=== PATIENT | female | born 1940 | race Caucasian/White ===

== ENCOUNTER → 2017-12-18 10:10 | Outpatient (CLI) | payer MEDICARE, OTHER, SELFPAY ==
[2017-12-18 12:50] LABS: TSH w/ Reflex to FT4 < 0.02 uIU/mL (0.47-4.68)
[2017-12-18 13:18] LABS: Free T4, Direct Thyroxine 1.49 ng/dL (0.78-2.19)
== END ==
PROVIDERS: PCP Family Medicine; Visit Provider Family Medicine
DX: E03.9 Hypothyroidism, unspecified (principal)
CPT/HCPCS: 36415; 84439; 84443

== ENCOUNTER 2019-01-17 11:48 | Day surgery (SDC) | payer MEDICARE, OTHER, SELFPAY ==
--- NOTE | 2019-01-17 | PATH_ITS ---
[facility] Accession Number: [id number] . 01 Material submitted: . body - POLYP AT 100 CM . 02 Diagnosis: Colon, Polyp at 100 cm, Biopsy: Colonic mucosa with prominent submucosal mature adipose tissue, consistent with lipoma. No evidence of atypia, epithelial dysplasia or malignancy. MRV/01/21/2019 . 02 Electronically signed: . Thea Skinner MD, Pathologist NPI- [id number] . 01 Gross description: . Received in formalin, labeled polyp @ 100 cm, is a prince rubbery polyp (1.3 x 0.9 x 0.5 cm). The resection margin is inked blue. Longitudinally bisected and entirely submitted in cassette A1. ([id number]) /MRV . 02 Pathologist provided ICD-10: K63.5 . 02 CPT . 801519 Performed at: 01 [facility] [address] [facility], [place], [place] [id number] MD Jese Parson MD Phone: [phone] Performed at: 02 [facility] [address] [place], [place] [id number] MD Thea Skinner MD Phone: [phone]
[2019-01-17 12:36] VITALS: BP 153/97; PULSE 117; RESP 22; TEMP 37.3; O2SAT 90; BMI 38.9
--- NOTE | 2019-01-17 12:39 | PM.HP.1 ---
History of Present Illness Date Patient Seen: 01/17/19 Time Patient Seen: 12:39 Chief complaint: [id number] Narrative: Patient presents for colorectal screening. They had a previous examination 5 years ago and was significant for a polyp. On further history denies any recent gastrointestinal symptoms. No nausea, vomiting, abdominal pain, loss of appetite, unexplained weight loss, change in bowel habits, diarrhea, constipation, melena, hematochezia, or bright red blood per rectum. Patient History Medical History Ankle pain (Chronic) Colon polyps (Chronic) Hyperlipidemia (Chronic) Hypertension (Chronic) Hypothyroidism (Chronic ~1990) Osteoarthritis (Chronic ~2004) Shingles (Chronic) Cataracts, bilateral (Resolved ~2004) Surgical History Anesthesia (Resolved) Fracture (Resolved) History of cataract removal with insertion of prosthetic lens Status post colonoscopy (01/14/14) Status post colonoscopy (01/18/11) Family History Mother Age: 108 Hypertension Brother No problems noted. Father No problems noted. Social History marital status: unmarried,single number of children: 0 household members: other lives independently: Yes education level: vocational occupational status: other Smoking Status: Never smoker alcohol intake: former substance use type: does not use Family & Social History Family History Mother Age: 108 Hypertension Brother No problems noted. Father No problems noted. Social History: household members other lives independently Yes Tobacco & Substance use: Smoking Status Never smoker alcohol intake former Meds Home Medications Medication Instructions Recorded Confirmed Type Multivitamin, Minerals, and 1 tab PO Q DAY #0 01/21/11 History (#CENTRUM SILVER) VITAMIN D (Vitamin D3) 1,000 unit PO QDAY #0 01/21/11 History [GLUCOSAMINE] #0 01/21/11 History ASPIRIN (Aspirin EC) 81 mg PO QDAY #0 04/16/12 History hydrochlorothiazide 25 mg tablet 25 mg PO QDAY #90 tab 05/16/18 Rx metronidazole 0.75 % topical gel 1 applictn TOPICAL BID #45 gram 05/16/18 Rx pravastatin 20 mg tablet 20 mg PO HS #90 tab 05/16/18 Rx polyethylene glycol 3350 17 See Rx Instructions PO QDAY #527 07/04/18 Rx gram/dose oral powder gram Allergies Allergy/AdvReac Type Severity Reaction Status Date / Time No Known Drug Allergies Allergy Verified 05/01/18 11:41 Review of Systems Review of Systems All systems reviewed & are unremarkable except as noted in HPI and below Exam Narrative Exam Narrative: General-adult female no acute distress, well nourished HEENT-moist mucous membranes, no scleral icterus Neck-supple with full range of motion, no lymphadenopathy Chest- no labored respirations, clear to auscultation bilaterally Cardiac-regular rate and rhythm Abdomen-soft, nontender, non distended Extremities-no edema, warm well perfused Neurological-alert and oriented x 3. No focal deficits Skin-normal temperature and turgor, no rashes or ulcers Assessment & Plan (1) Screening for colorectal cancer: Current visit: Yes Status: Acute Assessment & Plan narrative: Patient is requiring colorectal screening. On presentation today she was mildly tachycardic an EKG was obtained and demonstrates sinus tachycardia likely secondary to dehydration. Will start IVF and ok to proceed. Colonoscopy is recommended. Technical details were discussed. Risks, benefits, alternatives explained. Risks including but not limited to sedation, aspiration, bleeding, pain, missed lesion, incomplete examination, need for further radiographic studies, colonic perforation, need for major abdominal surgery, and all attendant risks major surgery were discussed at length. All questions were answered to their satisfaction, and they voiced understanding.
[2019-01-17] MEDS: SODIUM CHLORIDE 0.9% 1,000 ML 200 ML IV (12:44)
--- NOTE | 2019-01-17 12:54 | SUR.PREOP ---
PT SLIGHTLY DIAPHORETIC, APPPEARS SLIGHTLY SOB, PT DENIES FEELING SOB, HR 108-120, PUSLE OX 89%-92% ON ROOM AIR. DR BARAHONA NOTIFIED, EKG OBTAINED, EKG SHOWN TO DR BARAHONA - OK TO CONTINUE WITH PROCEDURE.
--- NOTE | 2019-01-17 13:52 | PM.OP.ENDO ---
Operative Date/Time/Diagnoses Date of procedure: 01/17/19 Time of procedure: 13:52 Pre-op diagnosis: routine screening colonoscopy Post-op diagnosis: same Procedure & Clinicians Study performed: colonoscopy Same procedure as scheduled: Yes Indications: Polyp 5 years ago. Surgeon: Juancho Valiente Procedure Notes SCOAP/Timeout: performed Procedure in detail: Digital rectal exam was performed and was negative for masses. The colonoscope was carefully inserted in the anus rectum advanced through the sigmoid and descending colon transverse and the ileocecal valve was reached. A 1 cm polyp was identified at 110 cm from the anal verge. Snare biopsy was used to remove the polyp. The site was hemostatic. The colonoscope was carefully withdrawn. The remainder of the colon was notable for diverticulum. Grade 1 internal hemorrhoids. Scope withdrawal time: 29 Sedation minutes: 35 Findings: diverticulosis, internal hemorrhoids and polyp Specimen(s): other (polyp 100 cm) Impression: polyp Recommendations: Colonscopy in 5 years Disposition: same day surgery
[2019-01-17] MEDS: fentaNYL 250 MCG/5 ML INJ IV (13:54)
[2019-01-17] MEDS: MIDAZOLAM 5 MG/5 ML VIAL IV (13:54)
[2019-01-17 13:55] VITALS: BP 141/93; PULSE 108; RESP 18; TEMP 37; O2SAT 92
== END 2019-01-17 14:14 | disposition home or self-care (01) ==
PROVIDERS: PCP Family Medicine; Visit Provider Surgery
PROC: 0DJD8ZZ Inspection of Lower Intestinal Tract, Via Natural or Artificial Opening Endoscopic (ICD-10-PCS; CPT 45378; principal; 2019-01-17 13:00)
DX: Z86.010 Personal history of colon polyps (principal); K63.5 Polyp of colon; K57.30 Diverticulosis of large intestine without perforation or abscess without bleeding; K64.0 First degree hemorrhoids; R00.0 Tachycardia, unspecified; I10 Essential (primary) hypertension; E78.5 Hyperlipidemia, unspecified; E03.9 Hypothyroidism, unspecified
CPT/HCPCS: 45385; 88305; 93005; 93010; 99152; 99153; J2250; J3010

== ENCOUNTER → 2019-04-11 07:44 | Outpatient (CLI) | payer MEDICARE, OTHER, SELFPAY ==
[2019-04-11 08:19] LABS: Add Manual Diff / Slide Review NO; Basophils Absolute Auto 0 /uL (0-100); Basophils Percent Auto 0.6 % (0-2); Eosinophils Absolute Auto 100 /uL (0-450); Eosinophils Percent Auto 0.9 % (2-4); Hemoglobin 14.9 g/dL (12.0-16.0); Lymphocytes Absolute Auto 1600 /uL (1100-4500); Lymphocytes Percent Auto 20.7 % (25-40); Mean Corpuscular HGB Conc 33.8 % (30-36); Mean Corpuscular Hemoglobin 32.2 PG (26-34); Mean Corpuscular Volume 95.3 fL (80-100); Monocytes Absolute Auto 600 /uL (0-900); Monocytes Percent Auto 7.7 % (3-14); Neutrophils Absolute Auto 5400 /uL (1500-7000); Neutrophils Percent Auto 70.1 % (50-75); Platelet Count 290 X10^3/uL (150-400); Red Blood Cell Count 4.61 X10^6/uL (4.0-5.2); Red Cell Distribution Width 13.6 % (11.6-14.8); White Blood Cell Count 7.7 X10^3/uL (4.5-11.0)
[2019-04-11 08:38] LABS: Alanine Aminotransferase 15 IU/L (<35); Albumin 4.4 g/dL (3.5-5.0); Albumin Globulin Ratio 1.3 (1.0-2.8); Alkaline Phosphatase 73 U/L (38-126); Aspartate Aminotransferase 27 IU/L (14-36); Bilirubin Total 0.6 mg/dL (0.2-1.3); Blood Urea Nitrogen 20 mg/dL (7-17); Carbon Dioxide 32 mmol/L (22-32); Chloride 101 mmol/L (98-107); Cholesterol 216 mg/dL (140-199); Estimated Glomerular Filt Rate > 60.0 mL/min (>60); Globulin 3.4 g/dL (1.7-4.1); Glucose 108 mg/dL (80-110); HDL Cholesterol 35 mg/dL (40-60); HEMOLYSIS < 15 (0-50); LDL Cholesterol Calculated 146 mg/dL (<100); Potassium 4.2 mmol/L (3.4-5.1); Sodium 141 mmol/L (137-145); Total Protein 7.8 g/dL (6.3-8.2); Triglycerides 173 mg/dL (35-150)
[2019-04-11 09:03] LABS: TSH w/ Reflex to FT4 0.09 uIU/mL (0.47-4.68)
[2019-04-11 09:35] LABS: Free T4, Direct Thyroxine 1.07 ng/dL (0.78-2.19)
== END ==
PROVIDERS: PCP Family Medicine; Visit Provider Family Medicine
DX: E03.9 Hypothyroidism, unspecified (principal); E66.01 Morbid (severe) obesity due to excess calories; E78.2 Mixed hyperlipidemia; I10 Essential (primary) hypertension; Z68.41 Body mass index [BMI] 40.0-44.9, adult
CPT/HCPCS: 36415; 80053; 80061; 84439; 84443; 85025

== ENCOUNTER → 2020-10-05 07:28 | Outpatient (CLI) | payer MEDICARE, OTHER, SELFPAY ==
[2020-10-05 08:50] LABS: Alanine Aminotransferase 16 IU/L (<35); Albumin Globulin Ratio 1.2 (1.0-2.8); Alkaline Phosphatase 70 U/L (38-126); Aspartate Aminotransferase 25 IU/L (14-36); BUN Creatinine Ratio 25.9 (6-22); Bilirubin Total 0.5 mg/dL (0.2-1.3); Blood Urea Nitrogen 21 mg/dL (7-17); Calcium 10.2 mg/dL (8.4-10.2); Carbon Dioxide 31 mmol/L (22-32); Chloride 102 mmol/L (98-107); Cholesterol 205 mg/dL (140-199); Estimated Glomerular Filt Rate > 60.0 mL/min (>60); Globulin 3.3 g/dL (1.7-4.1); Glucose 102 mg/dL (80-110); HDL Cholesterol 43 mg/dL (40-60); HEMOLYSIS < 15 (0-50); LDL Cholesterol Calculated 127 mg/dL (<100); Potassium 4.5 mmol/L (3.4-5.1); Sodium 141 mmol/L (137-145); Total Protein 7.3 g/dL (6.3-8.2); Triglycerides 173 mg/dL (35-150)
== END ==
PROVIDERS: PCP Family Medicine; Referring Provider Family Medicine; Visit Provider Family Medicine
DX: E66.01 Morbid (severe) obesity due to excess calories (principal); E78.2 Mixed hyperlipidemia; I10 Essential (primary) hypertension; Z68.41 Body mass index [BMI] 40.0-44.9, adult
CPT/HCPCS: 36415; 80053; 80061

== ENCOUNTER → 2020-10-27 10:26 | Outpatient (CLI) | payer MEDICARE, OTHER, SELFPAY | PROVIDERS: PCP Family Medicine; Referring Provider Family Medicine; Visit Provider Family Medicine | DX: M85.851 Other specified disorders of bone density and structure, right thigh (principal); Z78.0 Asymptomatic menopausal state; E07.9 Disorder of thyroid, unspecified | CPT/HCPCS: 77080 ==

== ENCOUNTER → 2022-07-13 07:34 | Outpatient (CLI) | payer MEDICARE, OTHER, SELFPAY ==
[2022-07-13 08:04] LABS: Add Manual Diff / Slide Review NO; Basophils Absolute Auto 0 /uL (0-100); Basophils Percent Auto 0.6 % (0-2); Eosinophils Absolute Auto 200 /uL (0-450); Eosinophils Percent Auto 1.7 % (2-4); Hematocrit 43.9 % (36-46); Hemoglobin 14.4 g/dL (12.0-16.0); Lymphocytes Absolute Auto 1700 /uL (1100-4500); Lymphocytes Percent Auto 18.4 % (25-40); Mean Corpuscular HGB Conc 32.9 % (30-36); Mean Corpuscular Hemoglobin 31.2 PG (26-34); Mean Corpuscular Volume 94.8 fL (80-100); Monocytes Absolute Auto 600 /uL (0-900); Monocytes Percent Auto 6.4 % (3-14); Neutrophils Absolute Auto 6600 /uL (1500-7000); Neutrophils Percent Auto 72.9 % (50-75); Platelet Count 330 X10^3/uL (150-400); Red Blood Cell Count 4.63 X10^6/uL (4.0-5.2); Red Cell Distribution Width 13.7 % (11.6-14.8)
[2022-07-13 08:19] LABS: Alanine Aminotransferase 18 IU/L (<35); Albumin 3.9 g/dL (3.5-5.0); Albumin Globulin Ratio 1.2 (1.0-2.8); Alkaline Phosphatase 86 U/L (38-126); Aspartate Aminotransferase 23 IU/L (14-36); BUN Creatinine Ratio 23.6 (6-22); Bilirubin Total 0.6 mg/dL (0.2-1.3); Blood Urea Nitrogen 17 mg/dL (7-17); Calcium 9.9 mg/dL (8.4-10.2); Carbon Dioxide 28 mmol/L (22-32); Chloride 103 mmol/L (98-107); Estimated Glomerular Filt Rate > 60 mL/min (>60); Globulin 3.3 g/dL (1.7-4.1); Glucose 99 mg/dL (80-110); HEMOLYSIS < 15 (0-50); Potassium 4.4 mmol/L (3.4-5.1); Sodium 140 mmol/L (137-145); Total Protein 7.2 g/dL (6.3-8.2)
== END ==
PROVIDERS: PCP Family Medicine; Referring Provider Family Medicine; Visit Provider Family Medicine
DX: E66.01 Morbid (severe) obesity due to excess calories (principal); E78.2 Mixed hyperlipidemia; I10 Essential (primary) hypertension; Z68.41 Body mass index [BMI] 40.0-44.9, adult
CPT/HCPCS: 36415; 80053; 85025

== ENCOUNTER 2022-12-15 11:14 | Inpatient (IN) | payer OTHER, SELFPAY ==
[2022-12-15] VITALS (45 sets, daily range): BP systolic 111–155; BP diastolic 58–83; PULSE 93–133; RESP 13–32; TEMP 36.8–37.5; O2SAT 91–96; BMI 37.0; BMI 35.9
--- NOTE | 2022-12-15 11:28 | DI.RAD.S_ITS ---
PROCEDURE: XR CHEST 1V INDICATIONS: suspected sepsis TECHNIQUE: One view of the chest was acquired. COMPARISON: None. FINDINGS: Surgical changes and devices: None. Lungs and pleura: Elevated right hemidiaphragm. Lungs are poorly expanded limiting evaluation. There is appearance of increased vascularity. Mediastinum: Mediastinal contours appear normal. Heart size is normal. Bones and chest wall: No suspicious bony lesions. Overlying soft tissues appear unremarkable. IMPRESSION: Limited inflation of the lungs limiting evaluation. Increased vascularity is present possibly related to poor lung volumes versus edema. Dictated by: Iris Sethi M.D. on 12/15/2022 at 12:33 Approved by: Iris Sethi M.D. on 12/15/2022 at 12:33
--- NOTE | 2022-12-15 11:36 | DI.RAD.S_ITS ---
PROCEDURE: XR HIP W PEL IF DONE RT 2V INDICATIONS: r/o fx TECHNIQUE: AP pelvis with lateral view(s) of the right hip(s). COMPARISON: None. FINDINGS: Bones: No fractures or dislocations. Pelvic ring appears intact. No suspicious bony lesions. Severe right and moderate to severe left degenerative arthritic changes within the hips. Subchondral sclerosis and periarticular lucencies are present most notable on the right. Soft tissues: The visualized bowel gas pattern is normal. No suspicious soft tissue calcifications. IMPRESSION: Significant arthritic changes most severe on the right. No visualized acute fracture or dislocation. However, if clinical concern and/or pain persist, short interval imaging followup in 7-10 days is recommended, as occult injury cannot be definitively excluded. Dictated by: Iris Sethi M.D. on 12/15/2022 at 12:32 Approved by: rIis Sethi M.D. on 12/15/2022 at 12:32
--- NOTE | 2022-12-15 11:37 | DI.RAD.S_ITS ---
PROCEDURE: XR KNEE RT 1TO2V INDICATIONS: r/o fx TECHNIQUE: 3 views of the knee were acquired. COMPARISON: None. FINDINGS: Bones: No fractures or dislocations. No suspicious bony lesions. Soft tissues: No joint effusion. No suspicious soft tissue calcifications. IMPRESSION: No visualized acute fracture or dislocation. However, if clinical concern and/or pain persist, short interval imaging followup in 7-10 days is recommended, as occult injury cannot be definitively excluded. Dictated by: Iris Sethi M.D. on 12/15/2022 at 12:31 Approved by: Iris Sethi M.D. on 12/15/2022 at 12:32
--- NOTE | 2022-12-15 11:39 | ED_ITS ---
HPI - SOB/Dyspnea <Gilberto Preciado MD - Last Filed: 12/15/22 20:21> General Chief Complaint: Shortness of Breath/Dyspnea Stated Complaint: Fall last night Time Seen by Provider: 12/15/22 11:38 Source: patient and EMS Mode of arrival: EMS Limitations: no limitations History of Present Illness HPI Narrative: This 82-year-old patient comes in by EMS due to weakness and dyspnea. She is normally ambulatory and mobile without assistance. She describes having a chest cold the last 2 days. She collapsed to the floor last night due to weakness. She denies syncope. She would no chest pains, palpitations, confusion or focal weakness. Her neighbor found her down this morning and called 911. She has O2 sats of 87% on room air was initial assessment. She has no chronic lung disease. She does take hydrochlorothiazide. She is no orthopnea, no peripheral edema. She is alert, oriented, and communicating well at the time of arrival. Related Data Home Medications Medication Instructions Recorded Confirmed VITAMIN D (Vitamin D3) 1,000 unit PO QDAY ##0 01/21/11 12/16/22 [GLUCOSAMINE] 1 cap PO DAILY ##0 01/21/11 12/16/22 lyoauuaa-cui-fykhr acid 0.4 1 tab PO DAILY 01/17/19 12/16/22 mg-lycopene 300 mcg-lutein 250 mcg tablet (Centrum Silver) methimazole 5 mg tablet 5 mg PO DAILY 11/07/19 12/16/22 Previous Rx's Medication Instructions Recorded polyethylene glycol 3350 17 See Rx Instructions PO QDAY #527 07/04/18 gram/dose oral powder (Miralax) grams hydrochlorothiazide 25 mg tablet 25 mg PO DAILY #90 tabs 03/22/22 pravastatin 20 mg tablet 20 mg PO HS #90 tabs 03/22/22 Allergies Allergy/AdvReac Type Severity Reaction Status Date / Time No Known Drug Allergies Allergy Verified 08/22/22 10:02 Review of Systems <Gilberto Preciado MD - Last Filed: 12/15/22 20:21> Review of Systems ROS Unobtainable: All systems reviewed & are unremarkable except as noted in HPI and below Constitutional Constitutional: Denies chills, Denies fatigue, Denies fever(s), Reports lethargy and Reports weakness Eyes Eyes: Denies change in vision ENT Ears, Nose, Mouth, and Throat: Denies dizziness, Denies mouth pain, Reports neck pain and Denies sore throat Cardiovascular Cardiovascular: Denies chest pain, Denies syncope, Denies rapid heart rate, Denies pedal edema, Denies lightheadedness and Denies dyspnea Respiratory Respiratory: Denies chest congestion, Denies cough and Denies dyspnea Gastrointestinal Gastrointestinal: Denies abdominal pain and Denies nausea Musculoskeletal Musculoskeletal: Denies arthralgias, Denies back pain and Reports neck pain Integumentary/Breasts Skin/Breast: Denies rash Neurologic Neurologic: Denies dizziness, Denies syncope and Reports weakness Endocrine Endocrine: Denies fatigue Patient History <Gilberto Preciado MD - Last Filed: 12/15/22 20:21> Medical History Ankle pain Cataracts, bilateral (~2004) Colon polyps Hyperlipidemia Hypertension Hyperthyroidism Hypothyroidism (~1990) Obesity (BMI 35.0-39.9 without comorbidity) Osteoarthritis (~2004) Shingles Surgical History Anesthesia Fracture History of cataract removal with insertion of prosthetic lens Status post colonoscopy (01/14/14) Status post colonoscopy (01/18/11) Family History Mother Age: 111 Hypertension Brother No problems noted. Father No problems noted. Social History marital status: unmarried,single number of children: 0 household members: none and other lives independently: Yes education level: vocational occupational status: other Smoking Status: Never smoker alcohol intake: former substance use type: does not use Smoking Status: Never smoker Substance Use Type: does not use Exam <Gilberto Preciado MD - Last Filed: 12/15/22 20:21> Initial Vital Signs Initial Vital Signs: Vital Signs Blood Pressure 123/58 L 12/15/22 11:23 Const General: cooperative, comfortable and No in distress HENMT Head: normal to inspection, normocephalic and atraumatic Face and sinus: normal facial exam and sinuses nontender Mouth: oral mucosae normal Throat: posterior oropharynx normal Eyes Conjunctivae: conjunctivae normal Pupils: PERRL EOM: EOM intact bilaterally Neck Neck: normal visual inspection and No JVD Chest Chest: normal inspection of the chest Other: Left rib tenderness. No crepitus. No palpable defects. Resp Effort & Inspection: normal respiratory effort Auscultation: clear to auscultation bilaterally Cardio Rate: tachycardic Rhythm: regular rhythm Heart Sounds: S1 normal, S2 normal and no murmurs GI Inspection: normal to inspection Palpation: soft and No tender Back/Spine/Pelvis Back: normal to inspection and No back tenderness Thoracic/Lumbar Spine: thoracic and lumbar spine normal to inspection Skin General: no rashes or lesions noted Neuro General: patient alert, patient awake, patient oriented x3 and no focal motor deficits Extrem General: normal to inspection, full ROM, no pedal edema and no calf tenderness Other: Both hips are nontender. Psych Appearance: grossly normal <Scott Dye MD - Last Filed: 12/16/22 03:23> Initial Vital Signs Initial Vital Signs: Vital Signs Blood Pressure 123/58 L 12/15/22 11:23 Course <Gilberto Preciado MD - Last Filed: 12/15/22 20:21> Course Course Narrative: Patient has CHF with a elevated troponin, The troponin has improved. She is no EKG changes, no chest pain, or dyspnea. She has an elevated BNP, LV strain is the probable reason for the positive troponin. She was given Lasix for CHF. She also has an elevated D-dimer, she has renal insufficiency. She would complained of a chest cold for the past 2 days. She is positive for COVID-19. She is mildly hypoxic upon arrival with O2 sats 87-88% on room air when evaluated by EMS at home. Her PCM, Dr. Hickey is not available for admission. My plan discussion was to anticoagulate an order a VQ scan tomorrow. Case was discussed with hospitalist, Dr. Padilla. He is no concern with the renal function, indicating a strong preference to proceed with a chest CTA. - Lenny ROSE 15:30 12/15/22. There is no evidence of PE. She has a goiter. She has a small right basilar abnormality, perhaps infiltrate. She does have COVID-19. Hospitalist was called about 90 minutes ago, no cause been returned thus far. Care transitioned to the oncoming ER physician, Dr Dye. Kaya ROSE 12/15/22 @ 18:50. Care was reviewed. Dr. Dunn consulted Cardiology, Dr. Samano. Patient was started on heparin. Echocardiogram in a.m. is recommended. CARMEN Whyte has agreed to admit the patient. Orders Ordered: Acetaminophen (Acetaminophen 325 Mg Tablet) 650 mg PO Q4H PRN PRN Reason: Fever/Mild Pain (1-10 Al Hydrox/Mg Hydrox/Simethicone (Mag Hydrox/Alum/Simeth 30 Ml Udc) 30 ml PO Q6HR PRN PRN Reason: Dyspepsia Albuterol (Albuterol 2.5 Mg/3 Ml Neb (Adult)) 2.5 mg INH RTQ4HR PRN PRN Reason: Shortness Of Breath Calcium Carbonate (Calcium Carbonate 500 Mg Tab) 1,000 mg PO Q4HR PRN PRN Reason: Dyspepsia Dexamethasone (Dexamethasone 10 Mg/Ml Vial) 6 mg IV DAILY [facility] Docusate Sodium (Docusate 100 Mg Capsule) 100 mg PO BID NOAM Last Admin: 12/15/22 22:14 Dose: 100 mg Documented By: MISBAH Heparin Sodium/Dextrose (Heparin Drip) 25,000 unit in 500 mls @ 20 mls/hr IV CONT NOAM; Protocol Last Admin: 12/15/22 20:18 Dose: 1,000 units/hr, 20 mls/hr Documented By: CRISTIN Co-signed By: URIEL Levofloxacin (Levaquin) 750 mg in 150 mls @ 100 mls/hr IV Q48H [facility] Last Infusion: 12/16/22 00:02 Dose: 0 mls/hr Documented By: Admin: 12/15/22 22:13 Dose: 100 mls/hr Documented By: MISBAH POTASSIUM CHLORIDE IN WATER (Potassium Cl 10 Meq/100 Ml Angelika) 10 meq in 100 mls @ 100 mls/hr IV Q1H NOAM Stop: 12/16/22 03:44 Last Admin: 12/16/22 02:34 Dose: 100 mls/hr Documented By: Infusion: 12/16/22 02:34 Dose: 100 mls/hr Documented By: Admin: 12/16/22 01:35 Dose: 100 mls/hr Documented By: Infusion: 12/16/22 01:35 Dose: 0 mls/hr Documented By: Admin: 12/16/22 00:02 Dose: 100 mls/hr Documented By: MISBAH Remdesivir 100 mg/ Sodium (Chloride) 250 mls @ 250 mls/hr IV DAILY [facility] Stop: 12/19/22 09:59 Lorazepam (Lorazepam 0.5 Mg Tablet) 0.5 mg PO Q4HR PRN PRN Reason: Anxiety Naloxone HCl (Naloxone 0.4 Mg/Ml Vial) 0.2 mg IV Q2MIN PRN PRN Reason: Opiate Reversal Non-Formulary Medication (Methimazole) 5 mg PO DAILY [facility] Ondansetron HCl (Ondansetron 4 Mg/2 Ml Inj) 4 mg IV Q4HR PRN PRN Reason: Nausea And Vomiting Oxycodone HCl (Oxycodone Ir 10 Mg Tablet) 10 mg PO Q3H PRN PRN Reason: Pain, Severe 5-10 Polyethylene Glycol (Polyethylene Glycol 3350 17 Gm Powd.Pack) 17 gm PO DAILY [facility] Pravastatin Sodium (Pravastatin 20 Mg Tablet) 20 mg PO BEDTIME [facility] Last Admin: 12/16/22 02:58 Dose: Not Given Documented By: MISBAH Sennosides (Sennosides 8.6 Mg Tablet) 17.2 mg PO BEDTIME [facility] Last Admin: 12/15/22 22:14 Dose: 17.2 mg Documented By: MISBAH Sodium Chloride (Sodium Chloride 0.9% Flush) 10 ml IV PRN PRN PRN Reason: Flush Sodium Chloride (Sodium Chloride 0.9% Flush) 10 ml IV BID [facility] Discontinued Medications Acetaminophen (Acetaminophen 325 Mg Tablet) 650 mg PO NOW ONE Stop: 12/15/22 11:56 Last Admin: 12/15/22 12:25 Dose: 650 mg Documented By: MISBAH(2) Furosemide (Furosemide 20 Mg/2 Ml Vial) 20 mg IV BID [facility] Last Admin: 12/15/22 22:14 Dose: 20 mg Documented By: MISBAH Heparin Sodium (Porcine) (Heparin 5,000 Unit/Ml Vial) 7,500 unit IV NOW ONE Stop: 12/15/22 20:07 Last Admin: 12/15/22 20:17 Dose: 7,500 unit Documented By: CRISTIN Sodium Chloride (Normal Saline 0.9%) 1,000 mls @ 1,000 mls/hr IV BOLUS ONE Stop: 12/15/22 12:27 Last Infusion: 12/15/22 12:50 Dose: 0 mls/hr Documented By: MISBAH(2) Admin: 12/15/22 11:45 Dose: 1,000 mls/hr Documented By: MISBAH(2) Furosemide 60 mg/ Sodium (Chloride) 56 mls @ 112 mls/hr IV NOW ONE Stop: 12/15/22 13:34 Last Infusion: 12/15/22 14:50 Dose: 0 mls/hr Documented By: MISBAH(2) Admin: 12/15/22 14:14 Dose: 112 mls/hr Documented By: MISBAH(2) Levofloxacin (Levaquin) 750 mg in 150 mls @ 100 mls/hr IV Q24H NOAM Stop: 12/20/22 20:44 Ondansetron HCl (Ondansetron 4 Mg/2 Ml Inj) 4 mg IV NOW PRN PRN Reason: Nausea And Vomiting Last Admin: 12/15/22 12:25 Dose: 4 mg Documented By: MISBAH(2) Ondansetron HCl (Ondansetron 4 Mg Odt) 4 mg SL NOW PRN PRN Reason: Nausea And Vomiting Potassium Chloride (Potassium Chloride 20 Meq Tab) 40 meq PO NOW ONE Stop: 12/15/22 23:36 Last Admin: 12/16/22 00:02 Dose: 40 meq Documented By: MISBAH Vital Signs Vital signs: Vital Signs - 8 hr 12/15/22 19:30 12/15/22 19:45 12/15/22 19:45 Pulse Rate 98 H 103 H Respiratory Rate 24 23 Blood Pressure 123/66 Pulse Oximetry 95 95 12/15/22 20:00 12/15/22 20:00 Pulse Rate 93 H Respiratory Rate 16 Blood Pressure 112/59 L Pulse Oximetry 95 <Scott Dye MD - Last Filed: 12/16/22 03:23> Orders Ordered: Acetaminophen (Acetaminophen 325 Mg Tablet) 650 mg PO Q4H PRN PRN Reason: Fever/Mild Pain (1-10 Al Hydrox/Mg Hydrox/Simethicone (Mag Hydrox/Alum/Simeth 30 Ml Udc) 30 ml PO Q 6HR PRN PRN Reason: Dyspepsia Albuterol (Albuterol 2.5 Mg/3 Ml Neb (Adult)) 2.5 mg INH RTQ4HR PRN PRN Reason: Shortness Of Breath Calcium Carbonate (Calcium Carbonate 500 Mg Tab) 1,000 mg PO Q4HR PRN PRN Reason: Dyspepsia Dexamethasone (Dexamethasone 10 Mg/Ml Vial) 6 mg IV DAILY [facility] Docusate Sodium (Docusate 100 Mg Capsule) 100 mg PO BID [facility] Last Admin: 12/15/22 22:14 Dose: 100 mg Documented By: MISBAH Heparin Sodium/Dextrose (Heparin Drip) 25,000 unit in 500 mls @ 20 mls/hr IV CONT NOAM; Protocol Last Admin: 12/15/22 20:18 Dose: 1,000 units/hr, 20 mls/hr Documented By: CRISTIN Co-signed By: URIEL Levofloxacin (Levaquin) 750 mg in 150 mls @ 100 mls/hr IV Q48H [facility] Last Infusion: 12/16/22 00:02 Dose: 0 mls/hr Documented By: Admin: 12/15/22 22:13 Dose: 100 mls/hr Documented By: MISBAH POTASSIUM CHLORIDE IN WATER (Potassium Cl 10 Meq/100 Ml Angelika) 10 meq in 100 mls @ 100 mls/hr IV Q1H NOAM Stop: 12/16/22 03:44 Last Admin: 12/16/22 02:34 Dose: 100 mls/hr Documented By: Infusion: 12/16/22 02:34 Dose: 100 mls/hr Documented By: Admin: 12/16/22 01:35 Dose: 100 mls/hr Documented By: Infusion: 12/16/22 01:35 Dose: 0 mls/hr Documented By: Admin: 12/16/22 00:02 Dose: 100 mls/hr Documented By: MISBAH Remdesivir 100 mg/ Sodium (Chloride) 250 mls @ 250 mls/hr IV DAILY [facility] Stop: 12/19/22 09:59 Lorazepam (Lorazepam 0.5 Mg Tablet) 0.5 mg PO Q4HR PRN PRN Reason: Anxiety Naloxone HCl (Naloxone 0.4 Mg/Ml Vial) 0.2 mg IV Q2MIN PRN PRN Reason: Opiate Reversal Non-Formulary Medication (Methimazole) 5 mg PO DAILY [facility] Ondansetron HCl (Ondansetron 4 Mg/2 Ml Inj) 4 mg IV Q4HR PRN PRN Reason: Nausea And Vomiting Oxycodone HCl (Oxycodone Ir 10 Mg Tablet) 10 mg PO Q3H PRN PRN Reason: Pain, Severe 5-10 Polyethylene Glycol (Polyethylene Glycol 3350 17 Gm Powd.Pack) 17 gm PO DAILY [facility] Pravastatin Sodium (Pravastatin 20 Mg Tablet) 20 mg PO BEDTIME [facility] Last Admin: 12/16/22 02:58 Dose: Not Given Documented By: MISBAH Sennosides (Sennosides 8.6 Mg Tablet) 17.2 mg PO BEDTIME [facility] Last Admin: 12/15/22 22:14 Dose: 17.2 mg Documented By: MISBAH Sodium Chloride (Sodium Chloride 0.9% Flush) 10 ml IV PRN PRN PRN Reason: Flush Sodium Chloride (Sodium Chloride 0.9% Flush) 10 ml IV BID NOAM Discontinued Medications Acetaminophen (Acetaminophen 325 Mg Tablet) 650 mg PO NOW ONE Stop: 12/15/22 11:56 Last Admin: 12/15/22 12:25 Dose: 650 mg Documented By: MISBAH(2) Furosemide (Furosemide 20 Mg/2 Ml Vial) 20 mg IV BID [facility] Last Admin: 12/15/22 22:14 Dose: 20 mg Documented By: MISBAH Heparin Sodium (Porcine) (Heparin 5,000 Unit/Ml Vial) 7,500 unit IV NOW ONE Stop: 12/15/22 20:07 Last Admin: 12/15/22 20:17 Dose: 7,500 unit Documented By: CRISTIN Sodium Chloride (Normal Saline 0.9%) 1,000 mls @ 1,000 mls/hr IV BOLUS ONE Stop: 12/15/22 12:27 Last Infusion: 12/15/22 12:50 Dose: 0 mls/hr Documented By: MISBAH(2) Admin: 12/15/22 11:45 Dose: 1,000 mls/hr Documented By: MISBAH(2) Furosemide 60 mg/ Sodium (Chloride) 56 mls @ 112 mls/hr IV NOW ONE Stop: 12/15/22 13:34 Last Infusion: 12/15/22 14:50 Dose: 0 mls/hr Documented By: MISBAH(2) Admin: 12/15/22 14:14 Dose: 112 mls/hr Documented By: MISBAH(2) Levofloxacin (Levaquin) 750 mg in 150 mls @ 100 mls/hr IV Q24H NOAM Stop: 12/20/22 20:44 Ondansetron HCl (Ondansetron 4 Mg/2 Ml Inj) 4 mg IV NOW PRN PRN Reason: Nausea And Vomiting Last Admin: 12/15/22 12:25 Dose: 4 mg Documented By: MISBAH(2) Ondansetron HCl (Ondansetron 4 Mg Odt) 4 mg SL NOW PRN PRN Reason: Nausea And Vomiting Potassium Chloride (Potassium Chloride 20 Meq Tab) 40 meq PO NOW ONE Stop: 12/15/22 23:36 Last Admin: 12/16/22 00:02 Dose: 40 meq Documented By: MISBAH Vital Signs Vital signs: Vital Signs - 8 hr 12/15/22 19:30 12/15/22 19:45 12/15/22 19:45 Pulse Rate 98 H 103 H Respiratory Rate 24 23 Blood Pressure 123/66 Pulse Oximetry 95 95 12/15/22 20:00 12/15/22 20:00 Pulse Rate 93 H Respiratory Rate 16 Blood Pressure 112/59 L Pulse Oximetry 95 MDM - SOB/Dyspnea <Gilberto Preciado MD - Last Filed: 12/15/22 20:21> Lab Data 12/15/22 11:40 12/15/22 22:07 Labs: Lab Results 12/15/22 12/15/22 12/15/22 Range/Units 11:20 11:40 11:40 WBC 13.7 H (4.5-11.0) X10^3/uL RBC 4.74 (4.0-5.2) X10^6/uL Hgb 15.1 (12.0-16.0) g/dL Hct 44.2 (36-46) % MCV 93.2 (80-100) fL MCH 31.9 (26-34) PG MCHC 34.3 (30-36) % RDW 14.0 (11.6-14.8) % Plt Count 264 (150-400) X10^3/uL Neut % (Auto) 82.8 H (50-75) % Lymph % (Auto) 6.1 L (25-40) % Ransom % (Auto) 10.9 (3-14) % Eos % (Auto) 0.0 L (2-4) % Baso % (Auto) 0.2 (0-2) % Neut # (Auto) 18403 H (9279-1660) /uL Lymph # (Auto) 800 L (5170-1407) /uL Ransom # (Auto) 1500 H (0-900) /uL Eos # (Auto) 0 (0-450) /uL Baso # (Auto) 0 (0-100) /uL PT 13.8 H (10.1-12.7) SECONDS INR 1.2 (0.9-1.3) APTT 35 (26-36) SECONDS D-Dimer (<500) ng/ml Sodium (137-145) mmol/L Potassium (3.4-5.1) mmol/L Chloride (98-107) mmol/L Carbon Dioxide (22-32) mmol/L BUN (7-17) mg/dL Creatinine (0.52-1.04) mg/dL Estimated GFR (>60) mL/min BUN/Creatinine Ratio (6-22) Glucose (80-110) mg/dL Lactate (0.7-2.1) mmol/L Calcium (8.4-10.2) mg/dL Magnesium (1.6-2.3) mg/dL Total Bilirubin (0.2-1.3) mg/dL AST (14-36) IU/L ALT (<35) IU/L Alkaline Phosphatase (38-126) U/L Total Creatine Kinase (30-135) U/L Troponin I (0.01-0.034) ng/mL NT-Pro-B Natriuret Pep (<450) pg/mL Total Protein (6.3-8.2) g/dL Albumin (3.5-5.0) g/dL Globulin (1.7-4.1) g/dL Albumin/Globulin Ratio (1.0-2.8) Triglycerides (35-150) mg/dL Cholesterol (140-199) mg/dL LDL Cholesterol, Calc (<100) mg/dL HDL Cholesterol (40-60) mg/dL Lipase (23-300) U/L Procalcitonin (<0.5) ng/mL Chlamy pneumoniae PCR Not detected (Not Detect) Adenovirus (PCR) Not detected (Not Detect) B. pertussis DNA (PCR) Not detected (Not Detecte) B.parapertussis DNA PCR Not detected (Not Detecte) Coronavirus OC43 (PCR) Not detected (Not Detect) Coronavirus HKU1 (PCR) Not detected (Not Detect) Coronavirus 229E (PCR) Not detected (Not Detect) SARS-CoV-2 (PCR) Detected H (Not Detecte) Coronavirus NL63 (PCR) Not detected (Not Detect) Human Metapneumovir PCR Not detected (Not Detect) Influenza Type A (PCR) Not detected (Not Detect) Influenza Type B (PCR) Not detected (Not Detect) M. pneumoniae (PCR) Not detected (Not Detect) Parainfluenza 1 (PCR) Not detected (Not Detect) Parainfluenza 2 (PCR) Not detected (Not Detect) Parainfluenza 3 (PCR) Not detected (Not Detect) Parainfluenza 4 (PCR) Not detected (Not Detect) RSV (PCR) Not detected (Not Detect) Entero/Rhino (PCR) Not detected (Not Detect) 12/15/22 12/15/22 12/15/22 Range/Units 11:40 11:40 11:40 WBC (4.5-11.0) X10^3/uL RBC (4.0-5.2) X10^6/uL Hgb (12.0-16.0) g/dL Hct (36-46) % MCV (80-100) fL MCH (26-34) PG MCHC (30-36) % RDW (11.6-14.8) % Plt Count (150-400) X10^3/uL Neut % (Auto) (50-75) % Lymph % (Auto) (25-40) % Ransom % (Auto) (3-14) % Eos % (Auto) (2-4) % Baso % (Auto) (0-2) % Neut # (Auto) (6802-9806) /uL Lymph # (Auto) (6582-1178) /uL Ransom # (Auto) (0-900) /uL Eos # (Auto) (0-450) /uL Baso # (Auto) (0-100) /uL PT (10.1-12.7) SECONDS INR (0.9-1.3) APTT (26-36) SECONDS D-Dimer 1045 H (<500) ng/ml Sodium 143 (137-145) mmol/L Potassium 3.4 (3.4-5.1) mmol/L Chloride 104 (98-107) mmol/L Carbon Dioxide 28 (22-32) mmol/L BUN 36 H (7-17) mg/dL Creatinine 1.25 H (0.52-1.04) mg/dL Estimated GFR 43 L (>60) mL/min BUN/Creatinine Ratio 28.8 H (6-22) Glucose 125 H (80-110) mg/dL Lactate 1.8 (0.7-2.1) mmol/L Calcium 9.7 (8.4-10.2) mg/dL Magnesium (1.6-2.3) mg/dL Total Bilirubin 0.6 (0.2-1.3) mg/dL AST 129 H (14-36) IU/L ALT 40 H (<35) IU/L Alkaline Phosphatase 61 (38-126) U/L Total Creatine Kinase (30-135) U/L Troponin I (0.01-0.034) ng/mL NT-Pro-B Natriuret Pep (<450) pg/mL Total Protein 7.7 (6.3-8.2) g/dL Albumin 4.1 (3.5-5.0) g/dL Globulin 3.6 (1.7-4.1) g/dL Albumin/Globulin Ratio 1.1 (1.0-2.8) Triglycerides (35-150) mg/dL Cholesterol (140-199) mg/dL LDL Cholesterol, Calc (<100) mg/dL HDL Cholesterol (40-60) mg/dL Lipase 35 (23-300) U/L Procalcitonin 1.46 H (<0.5) ng/mL Chlamy pneumoniae PCR (Not Detect) Adenovirus (PCR) (Not Detect) B. pertussis DNA (PCR) (Not Detecte) B.parapertussis DNA PCR (Not Detecte) Coronavirus OC43 (PCR) (Not Detect) Coronavirus HKU1 (PCR) (Not Detect) Coronavirus 229E (PCR) (Not Detect) SARS-CoV-2 (PCR) (Not Detecte) Coronavirus NL63 (PCR) (Not Detect) Human Metapneumovir PCR (Not Detect) Influenza Type A (PCR) (Not Detect) Influenza Type B (PCR) (Not Detect) M. pneumoniae (PCR) (Not Detect) Parainfluenza 1 (PCR) (Not Detect) Parainfluenza 2 (PCR) (Not Detect) Parainfluenza 3 (PCR) (Not Detect) Parainfluenza 4 (PCR) (Not Detect) RSV (PCR) (Not Detect) Entero/Rhino (PCR) (Not Detect) 12/15/22 12/15/22 12/15/22 Range/Units 11:40 14:19 14:19 WBC (4.5-11.0) X10^3/uL RBC (4.0-5.2) X10^6/uL Hgb (12.0-16.0) g/dL Hct (36-46) % MCV (80-100) fL MCH (26-34) PG MCHC (30-36) % RDW (11.6-14.8) % Plt Count (150-400) X10^3/uL Neut % (Auto) (50-75) % Lymph % (Auto) (25-40) % Ransom % (Auto) (3-14) % Eos % (Auto) (2-4) % Baso % (Auto) (0-2) % Neut # (Auto) (8175-1326) /uL Lymph # (Auto) (0265-9546) /uL Ransom # (Auto) (0-900) /uL Eos # (Auto) (0-450) /uL Baso # (Auto) (0-100) /uL PT (10.1-12.7) SECONDS INR (0.9-1.3) APTT (26-36) SECONDS D-Dimer (<500) ng/ml Sodium (137-145) mmol/L Potassium (3.4-5.1) mmol/L Chloride (98-107) mmol/L Carbon Dioxide (22-32) mmol/L BUN (7-17) mg/dL Creatinine (0.52-1.04) mg/dL Estimated GFR (>60) mL/min BUN/Creatinine Ratio (6-22) Glucose (80-110) mg/dL Lactate (0.7-2.1) mmol/L Calcium (8.4-10.2) mg/dL Magnesium 2.2 (1.6-2.3) mg/dL Total Bilirubin (0.2-1.3) mg/dL AST (14-36) IU/L ALT (<35) IU/L Alkaline Phosphatase (38-126) U/L Total Creatine Kinase 3062 H 3040 H (30-135) U/L Troponin I 0.186 H* 0.175 H* (0.01-0.034) ng/mL NT-Pro-B Natriuret Pep 5080 H (<450) pg/mL Total Protein (6.3-8.2) g/dL Albumin (3.5-5.0) g/dL Globulin (1.7-4.1) g/dL Albumin/Globulin Ratio (1.0-2.8) Triglycerides 84 (35-150) mg/dL Cholesterol 148 (140-199) mg/dL LDL Cholesterol, Calc 97 (<100) mg/dL HDL Cholesterol 34 L (40-60) mg/dL Lipase (23-300) U/L Procalcitonin (<0.5) ng/mL Chlamy pneumoniae PCR (Not Detect) Adenovirus (PCR) (Not Detect) B. pertussis DNA (PCR) (Not Detecte) B.parapertussis DNA PCR (Not Detecte) Coronavirus OC43 (PCR) (Not Detect) Coronavirus HKU1 (PCR) (Not Detect) Coronavirus 229E (PCR) (Not Detect) SARS-CoV-2 (PCR) (Not Detecte) Coronavirus NL63 (PCR) (Not Detect) Human Metapneumovir PCR (Not Detect) Influenza Type A (PCR) (Not Detect) Influenza Type B (PCR) (Not Detect) M. pneumoniae (PCR) (Not Detect) Parainfluenza 1 (PCR) (Not Detect) Parainfluenza 2 (PCR) (Not Detect) Parainfluenza 3 (PCR) (Not Detect) Parainfluenza 4 (PCR) (Not Detect) RSV (PCR) (Not Detect) Entero/Rhino (PCR) (Not Detect) Urine Dip Urine Specific Gardner 0 Bedside Urine Leukocytes +/- 15 Esterase Imaging Data Chest x-ray: Radiologist's Impression: Close Knee X-Ray (Signed) Iris Sethi - 12/15/22 Hip X-Ray (Signed) Iris Sethi 12/15/22 Chest X-Ray (Signed) Iris Sethi 12/15/[address] [place] [address] XRay Report Signed Patient: Abigail Meadows MR#: [id number] : 1940 Acct:[id number] Age/Sex: 82 / F Date of Service: 12/15/22 Loc: ED Accession Number: [id number] ?? Procedure: XR chest 1V Ordering Provider: Gilberto Preciado MD PROCEDURE:? XR CHEST 1V ? INDICATIONS:? suspected sepsis ? TECHNIQUE:? One view of the chest was acquired.? ? COMPARISON:? None. ? FINDINGS:? ? Surgical changes and devices:? None.? ? Lungs and pleura:? Elevated right hemidiaphragm.? Lungs are poorly expanded limiting evaluation.? There is appearance of increased vascularity. ? Mediastinum:? Mediastinal contours appear normal.? Heart size is normal.? ? Bones and chest wall:? No suspicious bony lesions.? Overlying soft tissues appear unremarkable.? ? IMPRESSION:? Limited inflation of the lungs limiting evaluation.? Increased vascularity is present possibly related to poor lung volumes versus edema. ? ? Dictated by: Iris Sethi M.D. on 12/15/2022 at 12:33 ? ? Approved by: Iris Sethi M.D. on 12/15/2022 at 12:33?? Right hip/pelvis x-ray:: Radiologist's Impression: Close Knee X-Ray (Signed) Iris Sethi - 12/15/22 Hip X-Ray (Signed) Iris Sethi - 12/15/22 Chest X-Ray (Signed) Iris Sethi - 12/15/22 Launch?[address] [address] XRay Report Signed Patient: Abigail Meadows MR#: [id number] : 1940 Acct:[id number] Age/Sex: 82 / F Date of Service: 12/15/22 Loc: ED Accession Number: [id number] ?? Procedure: XR chest 1V Ordering Provider: Gilberto Preciado MD PROCEDURE:? XR CHEST 1V ? INDICATIONS:? suspected sepsis ? TECHNIQUE:? One view of the chest was acquired.? ? COMPARISON:? None. ? FINDINGS:? ? Surgical changes and devices:? None.? ? Lungs and pleura:? Elevated right hemidiaphragm.? Lungs are poorly expanded limiting evaluation.? There is appearance of increased vascularity. ? Mediastinum:? Mediastinal contours appear normal.? Heart size is normal.? ? Bones and chest wall:? No suspicious bony lesions.? Overlying soft tissues appear unremarkable.? ? IMPRESSION:? Limited inflation of the lungs limiting evaluation.? Increased vascularity is present possibly related to poor lung volumes versus edema. ? ? Dictated by: Iris Sethi M.D. on 12/15/2022 at 12:33 ? ? Approved by: Iris Sethi M.D. on 12/15/2022 at 12:33?? Right knee XR:: Radiologist's Impression: Close Knee X-Ray (Signed) Iris Sethi 12/15/22 Hip X-Ray (Signed) Iris Sethi 12/15/22 Chest X-Ray (Signed) Iris Sethi 12/15/22 Launch?[place] [address] XRay Report Signed Patient: Abigail Meadows MR#: [id number] : 1940 Acct:[id number] Age/Sex: 82 / F Date of Service: 12/15/22 Loc: ED Accession Number: [id number] ?? Procedure: XR knee RT 1to2V Ordering Provider: Gilberto Preciado MD PROCEDURE:? XR KNEE RT 1TO2V ? INDICATIONS:? r/o fx ? TECHNIQUE:? 3 views of the knee were acquired.? ? COMPARISON:? None. ? FINDINGS:? ? Bones:? No fractures or dislocations.? No suspicious bony lesions.? ? Soft tissues:? No joint effusion.? No suspicious soft tissue calcifications.? ? ? IMPRESSION:? No visualized acute fracture or dislocation. However, if clinical concern and/or pain persist, short interval imaging followup in 7-10 days is recommended, as occult injury cannot be definitively excluded. ? ? Dictated by: Iris Sethi M.D. on 12/15/2022 at 12:31 ? ? Approved by: Iris Sethi M.D. on 12/15/2022 at 12:32?? CTA chest: Radiologist's Impression: Close Chest CTA (Signed) Iris Sethi 12/15/22 Knee X-Ray (Signed) Sethi,Iris - 12/15/22 Hip X-Ray (Signed) Sethi,Iris - 12/15/22 Chest X-Ray (Signed) SethiIris chnio - 12/15/22 Mammogram Result 05/11/22 Mammogram Result CC 04/12/21 DEXA Result 10/27/20 Bone Densitometry 10/27/20 Mammogram Result 04/02/20 Mammogram Result 04/02/20 DI Result 04/01/19 Telemetry Strips 01/17/19 DI Result 04/17/18 DI Result 04/17/18 DI Result 03/29/18 Launch?[place] [address] CT Scan Report Signed Patient: Abigail Meadows MR#: [id number] : 1940 Acct:[id number] Age/Sex: 82 / F Date of Service: 12/15/22 Loc: ED Accession Number: [id number] ?? Procedure: CT angio chest PE protocol Ordering Provider: Gilberto Preciado MD PROCEDURE:? CT ANGIO CHEST PE PROTOCOL ? INDICATIONS:? R/O PE ? TECHNIQUE:? After the administration of intravenous contrast, 2 mm thick sections acquired from the pulmonary apices to the posterior costophrenic angles.? 3-dimensional maximum intensity projection (MIP) coronal and sagittal reformats were then acquired through the thorax.? For radiation dose reduction, the following was used:? automated exposure control, adjustment of mA and/or kV according to patient size.? ? COMPARISON:? [facility], US, US THYROID, 09/30/2021, 11:53. ? FINDINGS:? Image quality:? Excellent.? ? Pulmonary arteries:? Pulmonary arteries are enlarged in size measuring 4.2 cm and demonstrate no intraluminal filling defects to suggest central pulmonary embolism.? ? Lungs and pleura:? Patchy consolidative opacity is present within the right base.? No pleural effusions or pneumothorax.? Central and peripheral airways are patent.? ? Mediastinum:? Heart size is normal, without pericardial effusion.? No mediastinal or hilar adenopathy.? There is mild aneurysmal dilation of the ascending thoracic aorta measuring 4.0 cm. Esophagus demonstrates diffuse circumferential thickening within the superior/mid portion. ? Bones and chest wall:? No suspicious bony lesions.? Ribs and thoracic spine appear intact throughout.? Thyroid gland is markedly enlarged bilaterally with areas of heterogeneous low attenuation and calcification.? Tissue appearing in similar density as the thyroid gland is noted to extend into the mediastinum.? This is causing overall right to left midline shift as well as hypertrophied right lobe which is greater than the left..? No axillary or supraclavicular adenopathy.? ? Abdomen:? Visualized upper abdominal solid organs appear normal in the early arterial phase of enhancement.? ? IMPRESSION:? ? No pulmonary embolism. ? Patchy opacity in the right base which may represent developing pneumonia.? Other etiology such as prominent dependent change/atelectasis should be considered. ? ? Markedly enlarged and heterogeneous thyroid lobe extending into the mediastinum causing right to left midline shift.? This was evaluated with ultrasound and appears most suggestive of goiter. ? Aneurysmal dilation of the ascending thoracic aorta measuring 4 cm. ? Circumferential thickening of the superior/mid esophagus.? This is overall nonspecific.? Recommend interval follow-up with esophagram or endoscopy to exclude underlying mass.? ? Dictated by: Iris Sethi M.D. on 12/15/2022 at 16:06 ? ? Approved by: Iris Sethi M.D. on 12/15/2022 at 16:11 ? ECG Data Attestation: I personally reviewed and interpreted this ECG as follows: (Sinus tachycardia rate 111. LAE. Incomplete RBBB. LAE. LVH. No acute ST elevation.) <Scott Dye MD - Last Filed: 12/16/22 03:23> Lab Data Labs: Lab Results 12/15/22 12/15/22 12/15/22 Range/Units 11:20 11:40 11:40 WBC 13.7 H (4.5-11.0) X10^3/uL RBC 4.74 (4.0-5.2) X10^6/uL Hgb 15.1 (12.0-16.0) g/dL Hct 44.2 (36-46) % MCV 93.2 (80-100) fL MCH 31.9 (26-34) PG MCHC 34.3 (30-36) % RDW 14.0 (11.6-14.8) % Plt Count 264 (150-400) X10^3/uL Neut % (Auto) 82.8 H (50-75) % Lymph % (Auto) 6.1 L (25-40) % Ransom % (Auto) 10.9 (3-14) % Eos % (Auto) 0.0 L (2-4) % Baso % (Auto) 0.2 (0-2) % Neut # (Auto) 64465 H (4470-0295) /uL Lymph # (Auto) 800 L (4737-7272) /uL Ransom # (Auto) 1500 H (0-900) /uL Eos # (Auto) 0 (0-450) /uL Baso # (Auto) 0 (0-100) /uL PT 13.8 H (10.1-12.7) SECONDS INR 1.2 (0.9-1.3) APTT 35 (26-36) SECONDS D-Dimer (<500) ng/ml Sodium (137-145) mmol/L Potassium (3.4-5.1) mmol/L Chloride (98-107) mmol/L Carbon Dioxide (22-32) mmol/L BUN (7-17) mg/dL Creatinine (0.52-1.04) mg/dL Estimated GFR (>60) mL/min BUN/Creatinine Ratio (6-22) Glucose (80-110) mg/dL Lactate (0.7-2.1) mmol/L Calcium (8.4-10.2) mg/dL Magnesium (1.6-2.3) mg/dL Total Bilirubin (0.2-1.3) mg/dL AST (14-36) IU/L ALT (<35) IU/L Alkaline Phosphatase (38-126) U/L Total Creatine Kinase (30-135) U/L Troponin I (0.01-0.034) ng/mL NT-Pro-B Natriuret Pep (<450) pg/mL Total Protein (6.3-8.2) g/dL Albumin (3.5-5.0) g/dL Globulin (1.7-4.1) g/dL Albumin/Globulin Ratio (1.0-2.8) Triglycerides (35-150) mg/dL Cholesterol (140-199) mg/dL LDL Cholesterol, Calc (<100) mg/dL HDL Cholesterol (40-60) mg/dL Lipase (23-300) U/L Procalcitonin (<0.5) ng/mL Chlamy pneumoniae PCR Not detected (Not Detect) Adenovirus (PCR) Not detected (Not Detect) B. pertussis DNA (PCR) Not detected (Not Detecte) B.parapertussis DNA PCR Not detected (Not Detecte) Coronavirus OC43 (PCR) Not detected (Not Detect) Coronavirus HKU1 (PCR) Not detected (Not Detect) Coronavirus 229E (PCR) Not detected (Not Detect) SARS-CoV-2 (PCR) Detected H (Not Detecte) Coronavirus NL63 (PCR) Not detected (Not Detect) Human Metapneumovir PCR Not detected (Not Detect) Influenza Type A (PCR) Not detected (Not Detect) Influenza Type B (PCR) Not detected (Not Detect) M. pneumoniae (PCR) Not detected (Not Detect) Parainfluenza 1 (PCR) Not detected (Not Detect) Parainfluenza 2 (PCR) Not detected (Not Detect) Parainfluenza 3 (PCR) Not detected (Not Detect) Parainfluenza 4 (PCR) Not detected (Not Detect) RSV (PCR) Not detected (Not Detect) Entero/Rhino (PCR) Not detected (Not Detect) 12/15/22 12/15/22 12/15/22 Range/Units 11:40 11:40 11:40 WBC (4.5-11.0) X10^3/uL RBC (4.0-5.2) X10^6/uL Hgb (12.0-16.0) g/dL Hct (36-46) % MCV (80-100) fL MCH (26-34) PG MCHC (30-36) % RDW (11.6-14.8) % Plt Count (150-400) X10^3/uL Neut % (Auto) (50-75) % Lymph % (Auto) (25-40) % Ransom % (Auto) (3-14) % Eos % (Auto) (2-4) % Baso % (Auto) (0-2) % Neut # (Auto) (1089-5481) /uL Lymph # (Auto) (5046-3918) /uL Ransom # (Auto) (0-900) /uL Eos # (Auto) (0-450) /uL Baso # (Auto) (0-100) /uL PT (10.1-12.7) SECONDS INR (0.9-1.3) APTT (26-36) SECONDS D-Dimer 1045 H (<500) ng/ml Sodium 143 (137-145) mmol/L Potassium 3.4 (3.4-5.1) mmol/L Chloride 104 (98-107) mmol/L Carbon Dioxide 28 (22-32) mmol/L BUN 36 H (7-17) mg/dL Creatinine 1.25 H (0.52-1.04) mg/dL Estimated GFR 43 L (>60) mL/min BUN/Creatinine Ratio 28.8 H (6-22) Glucose 125 H (80-110) mg/dL Lactate 1.8 (0.7-2.1) mmol/L Calcium 9.7 (8.4-10.2) mg/dL Magnesium (1.6-2.3) mg/dL Total Bilirubin 0.6 (0.2-1.3) mg/dL AST 129 H (14-36) IU/L ALT 40 H (<35) IU/L Alkaline Phosphatase 61 (38-126) U/L Total Creatine Kinase (30-135) U/L Troponin I (0.01-0.034) ng/mL NT-Pro-B Natriuret Pep (<450) pg/mL Total Protein 7.7 (6.3-8.2) g/dL Albumin 4.1 (3.5-5.0) g/dL Globulin 3.6 (1.7-4.1) g/dL Albumin/Globulin Ratio 1.1 (1.0-2.8) Triglycerides (35-150) mg/dL Cholesterol (140-199) mg/dL LDL Cholesterol, Calc (<100) mg/dL HDL Cholesterol (40-60) mg/dL Lipase 35 (23-300) U/L Procalcitonin 1.46 H (<0.5) ng/mL Chlamy pneumoniae PCR (Not Detect) Adenovirus (PCR) (Not Detect) B. pertussis DNA (PCR) (Not Detecte) B.parapertussis DNA PCR (Not Detecte) Coronavirus OC43 (PCR) (Not Detect) Coronavirus HKU1 (PCR) (Not Detect) Coronavirus 229E (PCR) (Not Detect) SARS-CoV-2 (PCR) (Not Detecte) Coronavirus NL63 (PCR) (Not Detect) Human Metapneumovir PCR (Not Detect) Influenza Type A (PCR) (Not Detect) Influenza Type B (PCR) (Not Detect) M. pneumoniae (PCR) (Not Detect) Parainfluenza 1 (PCR) (Not Detect) Parainfluenza 2 (PCR) (Not Detect) Parainfluenza 3 (PCR) (Not Detect) Parainfluenza 4 (PCR) (Not Detect) RSV (PCR) (Not Detect) Entero/Rhino (PCR) (Not Detect) 12/15/22 12/15/22 12/15/22 Range/Units 11:40 14:19 14:19 WBC (4.5-11.0) X10^3/uL RBC (4.0-5.2) X10^6/uL Hgb (12.0-16.0) g/dL Hct (36-46) % MCV (80-100) fL MCH (26-34) PG MCHC (30-36) % RDW (11.6-14.8) % Plt Count (150-400) X10^3/uL Neut % (Auto) (50-75) % Lymph % (Auto) (25-40) % Ransom % (Auto) (3-14) % Eos % (Auto) (2-4) % Baso % (Auto) (0-2) % Neut # (Auto) (5016-0044) /uL Lymph # (Auto) (1014-2754) /uL Ransom # (Auto) (0-900) /uL Eos # (Auto) (0-450) /uL Baso # (Auto) (0-100) /uL PT (10.1-12.7) SECONDS INR (0.9-1.3) APTT (26-36) SECONDS D-Dimer (<500) ng/ml Sodium (137-145) mmol/L Potassium (3.4-5.1) mmol/L Chloride (98-107) mmol/L Carbon Dioxide (22-32) mmol/L BUN (7-17) mg/dL Creatinine (0.52-1.04) mg/dL Estimated GFR (>60) mL/min BUN/Creatinine Ratio (6-22) Glucose (80-110) mg/dL Lactate (0.7-2.1) mmol/L Calcium (8.4-10.2) mg/dL Magnesium 2.2 (1.6-2.3) mg/dL Total Bilirubin (0.2-1.3) mg/dL AST (14-36) IU/L ALT (<35) IU/L Alkaline Phosphatase (38-126) U/L Total Creatine Kinase 3062 H 3040 H (30-135) U/L Troponin I 0.186 H* 0.175 H* (0.01-0.034) ng/mL NT-Pro-B Natriuret Pep 5080 H (<450) pg/mL Total Protein (6.3-8.2) g/dL Albumin (3.5-5.0) g/dL Globulin (1.7-4.1) g/dL Albumin/Globulin Ratio (1.0-2.8) Triglycerides 84 (35-150) mg/dL Cholesterol 148 (140-199) mg/dL LDL Cholesterol, Calc 97 (<100) mg/dL HDL Cholesterol 34 L (40-60) mg/dL Lipase (23-300) U/L Procalcitonin (<0.5) ng/mL Chlamy pneumoniae PCR (Not Detect) Adenovirus (PCR) (Not Detect) B. pertussis DNA (PCR) (Not Detecte) B.parapertussis DNA PCR (Not Detecte) Coronavirus OC43 (PCR) (Not Detect) Coronavirus HKU1 (PCR) (Not Detect) Coronavirus 229E (PCR) (Not Detect) SARS-CoV-2 (PCR) (Not Detecte) Coronavirus NL63 (PCR) (Not Detect) Human Metapneumovir PCR (Not Detect) Influenza Type A (PCR) (Not Detect) Influenza Type B (PCR) (Not Detect) M. pneumoniae (PCR) (Not Detect) Parainfluenza 1 (PCR) (Not Detect) Parainfluenza 2 (PCR) (Not Detect) Parainfluenza 3 (PCR) (Not Detect) Parainfluenza 4 (PCR) (Not Detect) RSV (PCR) (Not Detect) Entero/Rhino (PCR) (Not Detect) Urine Dip Urine Specific Gardner 0 Bedside Urine Leukocytes +/- 15 Esterase [facility] Medical decision making narrative: 6:00 p.m.. Sign out from Dr. Preciado, patient pending admission. Awaiting to hear back from hospitalist Hardik: 8:10 p.m.. I spoke with cardiology, dr samano, recommends heparin drip for the next 24 hours and echocardiogram in the morning. I spoke with hospitalist nurse practitioner, Kylah, she will see patient for admission Critical Care Time <Gilberto Preciado MD - Last Filed: 12/15/22 20:21> Critical Care Time Critical Care Time: Yes Total Critical Care Time: 50 Attestation: Care included the initial patient assessment, review of medical records, review of EKG, lab in radiology data. Patient was informed of the clinical findings. Care included consultation with the hospitalist team. Discharge Plan Departure Patient Disposition: Admitted as Observation Clinical Impression: Congestive heart failure, Renal failure, COVID-19, Rhabdomyolysis Admit Date/Time: 12/15/22 20:10 Admit Provider: Kylah Whyte
[2022-12-15] MEDS: SODIUM CHLORIDE 0.9% 1,000 ML 1000 ML IV (11:45)
--- NOTE | 2022-12-15 11:48 | PC.NURSE ---
Incidentally documented UA, and Intake/Output on wrong patient
[2022-12-15 11:56] LABS: Add Manual Diff / Slide Review NO; Basophils Absolute Auto 0 /uL (0-100); Basophils Percent Auto 0.2 % (0-2); Eosinophils Absolute Auto 0 /uL (0-450); Hematocrit 44.2 % (36-46); Hemoglobin 15.1 g/dL (12.0-16.0); Lymphocytes Absolute Auto 800 /uL (1100-4500); Lymphocytes Percent Auto 6.1 % (25-40); Mean Corpuscular HGB Conc 34.3 % (30-36); Mean Corpuscular Hemoglobin 31.9 PG (26-34); Mean Corpuscular Volume 93.2 fL (80-100); Monocytes Absolute Auto 1500 /uL (0-900); Monocytes Percent Auto 10.9 % (3-14); Neutrophils Absolute Auto 11400 /uL (1500-7000); Neutrophils Percent Auto 82.8 % (50-75); Platelet Count 264 X10^3/uL (150-400); Red Blood Cell Count 4.74 X10^6/uL (4.0-5.2); White Blood Cell Count 13.7 X10^3/uL (4.5-11.0)
[2022-12-15 12:04] LABS: INR 1.2 (0.9-1.3); Prothrombin Time 13.8 SECONDS (10.1-12.7)
[2022-12-15 12:06] LABS: Lactate (Lactic Acid) 1.8 mmol/L (0.7-2.1); PTT Partial Thromboplastin Tim 35 SECONDS (26-36)
[2022-12-15 12:07] LABS: Alanine Aminotransferase 40 IU/L (<35); Albumin 4.1 g/dL (3.5-5.0); Albumin Globulin Ratio 1.1 (1.0-2.8); Alkaline Phosphatase 61 U/L (38-126); Aspartate Aminotransferase 129 IU/L (14-36); BUN Creatinine Ratio 28.8 (6-22); Bilirubin Total 0.6 mg/dL (0.2-1.3); Blood Urea Nitrogen 36 mg/dL (7-17); Calcium 9.7 mg/dL (8.4-10.2); Carbon Dioxide 28 mmol/L (22-32); Chloride 104 mmol/L (98-107); Estimated Glomerular Filt Rate 43 mL/min (>60); Globulin 3.6 g/dL (1.7-4.1); Glucose 125 mg/dL (80-110); HEMOLYSIS < 15 (0-50); Lipase 35 U/L (23-300); Potassium 3.4 mmol/L (3.4-5.1); Sodium 143 mmol/L (137-145); Total Protein 7.7 g/dL (6.3-8.2)
[2022-12-15 12:14] LABS: Creatine Kinase 3062 U/L (30-135)
[2022-12-15 12:16] LABS: D Dimer 1045 ng/ml (<500)
[2022-12-15 12:19] LABS: NT-proBNP (BNP-Adult 18+) 5080 pg/mL (<450)
[2022-12-15 12:23] LABS: Procalcitonin 1.46 ng/mL (<0.5)
[2022-12-15] MEDS: ONDANSETRON 4 MG/2 ML INJ IV (12:25)
[2022-12-15] MEDS: ACETAMINOPHEN 325 MG TABLET 650 MG PO (12:25)
[2022-12-15 13:01] LABS: Troponin I 0.186 ng/mL (0.01-0.034)
[2022-12-15 13:18] LABS: Adenovirus Not Detected (Not Detect); B. parapertussis Not Detected (Not Detecte); Bordetella pertussis Not Detected (Not Detecte); Chlamydophila pneumoniae Not Detected (Not Detect); Coronavirus 229E Not Detected (Not Detect); Coronavirus HKU1 Not Detected (Not Detect); Coronavirus NL 63 Not Detected (Not Detect); Coronavirus OC43 Not Detected (Not Detect); Human Metapneumovirus Not Detected (Not Detect); Human Rhinovirus/Enterovirus Not Detected (Not Detect); Influenza A Not Detected (Not Detect); Influenza B Not Detected (Not Detect); Parainfluenza Virus 1 Not Detected (Not Detect); Parainfluenza Virus 2 Not Detected (Not Detect); Parainfluenza Virus 3 Not Detected (Not Detect); Parainfluenza Virus 4 Not Detected (Not Detect); Respiratory Syncytial Virus Not Detected (Not Detect); SARS- CoV-2 Detected (Not Detecte)
[2022-12-15 13:19] LABS: Mycoplasma pneumoniae Not Detected (Not Detect)
[2022-12-15] MEDS: FUROSEMIDE 60 MG in SODIUM CHLORIDE 0.9% 50 ML 112 MG IV (14:14)
[2022-12-15 14:41] LABS: Creatine Kinase 3040 U/L (30-135)
[2022-12-15 14:48] LABS: Troponin I 0.175 ng/mL (0.01-0.034)
--- NOTE | 2022-12-15 15:23 | DI.CT.S_ITS ---
PROCEDURE: CT ANGIO CHEST PE PROTOCOL INDICATIONS: R/O PE TECHNIQUE: After the administration of intravenous contrast, 2 mm thick sections acquired from the pulmonary apices to the posterior costophrenic angles. 3-dimensional maximum intensity projection (MIP) coronal and sagittal reformats were then acquired through the thorax. For radiation dose reduction, the following was used: automated exposure control, adjustment of mA and/or kV according to patient size. COMPARISON: [facility], US, US THYROID, 09/30/2021, 11:53. FINDINGS: Image quality: Excellent. Pulmonary arteries: Pulmonary arteries are enlarged in size measuring 4.2 cm and demonstrate no intraluminal filling defects to suggest central pulmonary embolism. Lungs and pleura: Patchy consolidative opacity is present within the right base. No pleural effusions or pneumothorax. Central and peripheral airways are patent. Mediastinum: Heart size is normal, without pericardial effusion. No mediastinal or hilar adenopathy. There is mild aneurysmal dilation of the ascending thoracic aorta measuring 4.0 cm. Esophagus demonstrates diffuse circumferential thickening within the superior/mid portion. Bones and chest wall: No suspicious bony lesions. Ribs and thoracic spine appear intact throughout. Thyroid gland is markedly enlarged bilaterally with areas of heterogeneous low attenuation and calcification. Tissue appearing in similar density as the thyroid gland is noted to extend into the mediastinum. This is causing overall right to left midline shift as well as hypertrophied right lobe which is greater than the left.. No axillary or supraclavicular adenopathy. Abdomen: Visualized upper abdominal solid organs appear normal in the early arterial phase of enhancement. IMPRESSION: No pulmonary embolism. Patchy opacity in the right base which may represent developing pneumonia. Other etiology such as prominent dependent change/atelectasis should be considered. Markedly enlarged and heterogeneous thyroid lobe extending into the mediastinum causing right to left midline shift. This was evaluated with ultrasound and appears most suggestive of goiter. Aneurysmal dilation of the ascending thoracic aorta measuring 4 cm. Circumferential thickening of the superior/mid esophagus. This is overall nonspecific. Recommend interval follow-up with esophagram or endoscopy to exclude underlying mass. Dictated by: Iris Sethi M.D. on 12/15/2022 at 16:06 Approved by: Iris Sethi M.D. on 12/15/2022 at 16:11
--- NOTE | 2022-12-15 17:18 | PC.NURSE ---
Pt placed on oximask @ 5L, 94% O2 RT at bedside for evaluation.
--- NOTE | 2022-12-15 17:45 | PC.NURSE ---
Pt's daughters are at bedside. They state pt's BLLE are normally extremely swollen describing pitting edema and abdomen is normally very large and bloated. They both saw the pt last night and this was the case however this afternoon after the fall there is no edema in legs and belly is half its normal size. Physician advised of family's observations.
[2022-12-15] MEDS: HEPARIN 5,000 UNIT/ML VIAL 7500 UNIT IV (20:17)
[2022-12-15] MEDS: HEPARIN DRIP 25,000 UNIT/500 ML IV.SOLN 20 UNIT IV (20:18)
--- NOTE | 2022-12-15 20:23 | DI.ECHO.S_ITS ---
[facility] +---------+ [facility] +---------+ : : [address] : : : : [id number] : : : : Phone: [phone]---------+ Echocardiogram Report + + :Name: CORAZON FORTUNE Study Date: 12/16/2022 Height: 63 in : :[facility] ReadingLocation: Weight: 209 lb : : Gender: Female BSA: 2.0 m2 : :: 1940 Age: 82 yrs BP: 121/64 mmHg: :Reason For Study: Congestive Heart Failure : :Ordering Physician: SCOT, : :CYNTHIA Performed By: Helena Hartmann : :Referring: CYNTHIA ELLISON : + + Interpretation Summary There is mild concentric left ventricular hypertrophy. The ejection fraction is estimated to be 50-55%. Diastolic function could not be accurately assessed due to unobtainable data. The right ventricle is normal in size and function. There is trace aortic regurgitation. Pulmonary artery pressures cannot be estimated because of the lack of a measurable TR jet velocity. The ascending aorta is mild-moderately enlarged, 4.2 cm. Procedure: A two-dimensional transthoracic echocardiogram with color flow and Doppler was performed. The study quality was technically adequate. There is no prior echocardiogram noted for this patient. The patient was in normal sinus rhythm during the exam. Left Ventricle: The left ventricle is normal in size. There is mild concentric left ventricular hypertrophy. The ejection fraction is estimated to be 50-55%. Diastolic function could not be accurately assessed due to unobtainable data. Right Ventricle: The right ventricle is normal in size and function. Atria: The left atrial size is normal. Right atrial size is normal. There is no Doppler evidence for an interatrial shunt. Mitral Valve: The mitral valve is normal. There is mild mitral annular calcification. There is no mitral valve stenosis. There is trace mitral regurgitation. Aortic Valve: The aortic valve is trileaflet. The aortic valve opens well. There is no aortic valve stenosis. There is trace aortic regurgitation. Tricuspid Valve: The tricuspid valve is normal. There is no tricuspid stenosis. There is trace tricuspid regurgitation. Pulmonary artery pressures cannot be estimated because of the lack of a measurable TR jet velocity. Pulmonic Valve: The pulmonic valve leaflets are thin and pliable; valve motion is normal. There is no pulmonic valvular stenosis. There is trace pulmonic regurgitation. Great Vessels: The aortic root is normal size. The ascending aorta is mild- moderately enlarged. The IVC is of normal diameter and collapses greater than 50% with a sniff. This suggests a low right atrial pressure of 3 mm Hg. Pericardium/ Pleura There is no pericardial effusion. There is a small right-sided pleural effusion. MMode/2D Measurements & Calculations LVIDd: 4.1 cm LVOT diam: 2.0 cm LVIDs: 2.8 cm Ao root diam: 2.9 cm FS: 32.3 % asc Aorta Diam: 4.2 cm IVSd: 1.3 cm LVPWd: 1.3 cm LV mejia. diameter/BSA (cm/m^2): 2.1 LV sys. diameter/BSA (cm/m^2): 1.4 LA A2 area: 12.6 cm2 RA long axis: 3.6 cm LA A4 area: 9.1 cm2 RA area: 8.1 cm2 LA length (vol): 4.2 cm RA vol: 15.5 ml LA vol: 23.1 ml RA : 7.9 ml/m2 LA vol index: 11.7 ml/m2 RVD1 (basal): 3.3 cm LVLs ap4: 5.0 cm LVLd ap2: 5.7 cm TAPSE_phl: 2.1 cm LVLs ap2: 5.3 cm Doppler Measurements & Calculations Ao V2 max: 138.0 cm/sec LVOT Max Mickey: 118.0 cm/sec Ao V2 mean: 98.7 cm/sec LV V1 max P.6 mmHg Ao max P.0 mmHg LV V1 VTI: 20.9 cm Ao mean P.0 mmHg IVETH(I,D): 2.7 cm2 Ao V2 VTI: 24.2 cm IVETH(V,D): 2.7 cm2 sev ratio: 0.86 IVETH indexed to BSA (cm^2/m^2): 1.4 MV E max mickey: 76.0 cm/sec PA V2 max: 94.3 cm/sec MV A max mickey: 125.0 cm/sec PA V2 mean: 57.5 cm/sec MV E/A: 0.61 PA mean P.0 mmHg Med Peak E' Mickey: 4.9 cm/sec PA pr(Accel): 44.4 mmHg E/E' med: 15.4 Lat Peak E' Mickey: 7.5 cm/sec E/E' lat: 10.2 E/e' average: 12.8 MV dec time: 0.12 sec SV(LVOT): 65.7 ml AV VR_phl: 0.86 IVETH(VTI)/BSA_phl: 1.4 MV P1/2t-pr_phl: 34.0 msec Reading Physician:12:10 PM
[2022-12-15 20:58] LABS: Cholesterol 148 mg/dL (140-199); HDL Cholesterol 34 mg/dL (40-60); LDL Cholesterol Calculated 97 mg/dL (<100); Magnesium 2.2 mg/dL (1.6-2.3); Triglycerides 84 mg/dL (35-150)
--- NOTE | 2022-12-15 21:07 | P.HP_ITS ---
History of Present Illness History of Present Illness Date Patient Seen: 12/15/22 Time Patient Seen: 20:28 Chief complaint: Fall last night Narrative: Abigail Meadows is a 82 yr old female with a history thyroid goiter (hyperthyroidism/hypothyroidism), CHF, HTN, HLD whopresented to the ED with weakness and dyspnea.? She is normally ambulatory and mobile without assist ance.? She describes having a chest cold the last 2 days.? She collapsed to the floor last night due to weakness, denies head injury or syncope.?Was found down by a neighbor this afternoon, who called EMS for transport. Patient was initially found to be 87% on room air in the ED. she quickly escalated up requiring 5-7 L by mask. In ED Initial troponin 0.175, repeat 0.186- placed on heparin drip per Dr. Jules Cardiology, BNP 5080 Given 60 Lasix in ED-patient demonstrates no fluid volume overload instead appears hypovolemic, lips are dry and cracked, no peripheral edema, lung sounds are predominantly clear with occasional expiratory wheezing decreased lung sounds in lower lobes, poor air e xchange, shallow tight breathing. She denies chest pains, palpitations, confusion, focal weakness, chronic lung disease, orthopnea, peripheral edema.? She is alert, oriented, and communicating well at the time of admit. On admit patient denies shortness in breath, headache, changes in vision, difficulty swallowing, speech impairment, weakness, numbness, tingling, difficulty with ambulation, recent falls, head injury, LOC, fever, body aches, chills, abdominal pain, nausea, vomiting, urinary incontinence/retention, dysuria, frequency, urgency, hematuria, bowel changes, constipation, incontinence, melena, rashes, recent changes to medication or trauma. 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 Currently under treatment for hyperthyroidism. Admit: temp 99.7?, 111/77, 95, 20, 95% on 7 L Mask. WBC 13.7, neutrophils 11,400, mono feels 1500, procalcitonin 1.46. BUN 36, creatinine 1.25, GFR 43, glucose 125, AST 129, ALT 40, CK 3040, BNP 580. Initial troponin 0.175, repeat 0.186. I personally reviewed all imaging and EKGs. EKG sinus tach rate 111, incomplete right BBB, unchanged from previous on 01/2019. Respiratory panel is negative with the exception of positive COVID, MRSA negative. CXR: Poor lung volumes versus edema. Left hip and knee x-rays are negative for acute process. CTA no PE. Patchy opacities in right base markedly enlarged and heterogeneous thyroid lobe possible goiter extends into the mediastinum causing a right left midline shift. 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 Circumferential thickening of the superior/mid esophagus. Patient admitted for acute hypoxic respiratory failure, rhabdomyolysis, CHF exacerbation, pneumonia, COVID-19, EDA, and myocardial injury. [facility] Medical History Ankle pain Cataracts, bilateral (~2004) Colon polyps Hyperlipidemia Hypertension Hyperthyroidism Hypothyroidism (~1990) Obesity (BMI 35.0-39.9 without comorbidity) Osteoarthritis (~2004) Shingles Surgical History Anesthesia Fracture History of cataract removal with insertion of prosthetic lens Status post colonoscopy (01/14/14) Status post colonoscopy (01/18/11) Family History Mother Age: 111 Hypertension Brother No problems noted. Father No problems noted. Social History marital status: unmarried,single number of children: 0 household members: none and other lives independently: Yes education level: vocational occupational status: other Smoking Status: Never smoker alcohol intake: former substance use type: does not use Meds Home Medications and Allergies Home Medications Medication Instructions Recorded Confirmed Type VITAMIN D (Vitamin D3) 1,000 unit PO QDAY ##0 01/21/11 12/16/22 History [GLUCOSAMINE] 1 cap PO DAILY ##0 01/21/11 12/16/22 History polyethylene glycol 3350 17 See Rx Instructions PO QDAY #527 07/04/18 12/16/22 Rx gram/dose oral powder (Miralax) grams [id number] acid 0.4 1 tab PO DAILY 01/17/19 12/16/22 History mg-lycopene 300 mcg-lutein 250 mcg tablet (Centrum Silver) methimazole 5 mg tablet 5 mg PO DAILY 11/07/19 12/16/22 History hydrochlorothiazide 25 mg tablet 25 mg PO DAILY #90 tabs 03/22/22 12/16/22 Rx pravastatin 20 mg tablet 20 mg PO HS #90 tabs 03/22/22 12/16/22 Rx Allergies Allergy/AdvReac Type Severity Reaction Status Date / Time No Known Drug Allergies Allergy Verified 08/22/22 10:02 Review of Systems Review of Systems Narrative: All 12 point systems reviewed with the patient and are negative except otherwise documented. Exam Vital Signs (past 8 hours): - 12/15/22 13:15 12/15/22 13:30 12/15/22 13:45 Pulse Rate 107 H 103 H 105 H Respiratory Rate 16 23 22 Blood Pressure Pulse Oximetry 94 94 94 Oxygen Delivery Method Nasal Cannula Oxygen Flow Rate 4 12/15/22 14:00 12/15/22 14:15 12/15/22 14:30 Pulse Rate 96 H 99 H 109 H Respiratory Rate 13 18 23 Blood Pressure Pulse Oximetry 91 93 94 Oxygen Delivery Method Nasal Cannula Nasal Cannula Oxygen Flow Rate 4 4 12/15/22 14:45 12/15/22 15:00 12/15/22 15:15 Pulse Rate 101 H 95 H 95 H Respiratory Rate 18 13 13 Blood Pressure Pulse Oximetry 93 93 92 Oxygen Delivery Method Oxygen Flow Rate 12/15/22 15:30 12/15/22 15:48 12/15/22 15:51 Pulse Rate 100 H 102 H 101 H Respiratory Rate 16 23 Blood Pressure Pulse Oximetry 95 95 94 Oxygen Delivery Method Nasal Cannula Nasal Cannula Oxygen Flow Rate 4 12/15/22 15:51 12/15/22 16:00 12/15/22 16:00 Pulse Rate 101 H Respiratory Rate 22 Blood Pressure 124/74 128/75 Pulse Oximetry 95 Oxygen Delivery Method Oxygen Flow Rate 12/15/22 16:15 12/15/22 16:15 12/15/22 17:18 Pulse Rate 98 H Respiratory Rate 21 Blood Pressure 131/65 Pulse Oximetry 96 94 Oxygen Delivery Method Oximask Oxygen Flow Rate 5 12/15/22 16:30 12/15/22 16:30 12/15/22 16:45 Pulse Rate 99 H Respiratory Rate 19 Blood Pressure 132/73 127/72 Pulse Oximetry Oxygen Delivery Method Oxygen Flow Rate 12/15/22 16:45 12/15/22 17:00 12/15/22 17:00 Pulse Rate 98 H 97 H Respiratory Rate 22 24 Blood Pressure 134/66 Pulse Oximetry 95 95 Oxygen Delivery Method Nasal Cannula Nasal Cannula Oxygen Flow Rate 5 5 12/15/22 17:15 12/15/22 17:15 12/15/22 17:30 Pulse Rate 96 H Respiratory Rate 20 Blood Pressure 139/67 127/67 Pulse Oximetry 93 Oxygen Delivery Method Oxygen Flow Rate 12/15/22 17:30 12/15/22 17:45 12/15/22 17:45 Pulse Rate 96 H 96 H Respiratory Rate 19 21 Blood Pressure 123/64 Pulse Oximetry 95 95 Oxygen Delivery Method Oxygen Flow Rate 12/15/22 18:00 12/15/22 18:00 12/15/22 18:15 Pulse Rate 96 H Respiratory Rate 19 Blood Pressure 127/68 117/66 Pulse Oximetry 95 Oxygen Delivery Method Oxygen Flow Rate 12/15/22 18:15 12/15/22 18:30 12/15/22 18:30 Pulse Rate 96 H 96 H Respiratory Rate 22 21 Blood Pressure 127/66 Pulse Oximetry 94 95 Oxygen Delivery Method Oxygen Flow Rate 12/15/22 18:45 12/15/22 18:45 12/15/22 19:00 Pulse Rate 96 H Respiratory Rate 18 Blood Pressure 127/63 111/77 Pulse Oximetry 96 Oxygen Delivery Method Oxygen Flow Rate 12/15/22 19:00 12/15/22 19:15 12/15/22 19:15 Pulse Rate 95 H 97 H Respiratory Rate 20 20 Blood Pressure 121/75 Pulse Oximetry 95 95 Oxygen Delivery Method Oximask Oxygen Flow Rate 5 12/15/22 19:30 12/15/22 19:45 12/15/22 19:45 Pulse Rate 98 H 103 H Respiratory Rate 24 23 Blood Pressure 123/66 Pulse Oximetry 95 95 Oxygen Delivery Method Oxygen Flow Rate 12/15/22 20:00 12/15/22 20:00 Pulse Rate 93 H Respiratory Rate 16 Blood Pressure 112/59 L Pulse Oximetry 95 Oxygen Delivery Method Oxygen Flow Rate Oxygen Delivery Method Oximask Oxygen Flow Rate 5 Narrative Exam Narrative: General: Patient is a well-developed, well-nourished elderly female in no dis tress at this time, resting comfortably on 5 L oxygen mask. HEENT: Normocephalic, atraumatic, extraocular muscles intact, oral pharynx is clear and mucous membranes is very dry, lips craked. Neck is supple and symmetric, trachea is midline, no adenopathy, no thyroid enlargement, nontender, no masses palpated. Negative for JVD Chest: Equal chest rise without nasal flaring, retractions, tachypneic or labored breathing. Lungs: Auscultation of all lung oquendo are coarse, tight, decreased throughout, with noted occasional expiratory wheezing, bases are significantly decreased. Cardio: regular rate and rhythm without murmur, rubs, or gallops, no carotid bruit, no cardiac pulsations present. Abdomen: Soft nontender, negative for organomegaly, or masses. Bowel sounds are present in all 4 quadrants without guarding or rebound, no CVA tenderness. Musculoskeletal: Muscle strength and tone are equal, no deformity, crepitus, effusions, cyanosis, clubbing or edema present. Full range of motion intact radial and pedal pulses are normal. Skin: Warm dry and intact without rashes, ulcerations or petechiae. Neuro: Alert and orientated x3, moves all extremities, sensation to touch intact, no gross deficits noted of cranial nerves. Psych: Patient has a well-kept appearance, appropriate affect, mental status attitude thought context and judgment are appropriate for age. Objective Labs 12/15/22 11:40 12/15/22 22:07 Labs: Laboratory Results - last 24 hr 12/15/22 12/15/22 12/15/22 11:20 11:40 11:40 WBC 13.7 H RBC 4.74 Hgb 15.1 Hct 44.2 MCV 93.2 MCH 31.9 MCHC 34.3 RDW 14.0 Plt Count 264 Neut % (Auto) 82.8 H Lymph % (Auto) 6.1 L [place] % (Auto) 10.9 Eos % (Auto) 0.0 L Baso % (Auto) 0.2 Neut # (Auto) 70311 H Lymph # (Auto) 800 L [place] # (Auto) 1500 H Eos # (Auto) 0 Baso # (Auto) 0 PT 13.8 H INR 1.2 APTT 35 D-Dimer Sodium Potassium Chloride Carbon Dioxide BUN Creatinine Estimated GFR BUN/Creatinine Ratio Glucose Lactate Calcium Magnesium Total Bilirubin AST ALT Alkaline Phosphatase Total Creatine Kinase Troponin I NT-Pro-B Natriuret Pep Total Protein Albumin Globulin Albumin/Globulin Ratio Triglycerides Cholesterol LDL Cholesterol, Calc HDL Cholesterol Lipase Procalcitonin Chlamy pneumoniae PCR Not detected Adenovirus (PCR) Not detected B. pertussis DNA (PCR) Not detected B.parapertussis DNA PCR Not detected Coronavirus OC43 (PCR) Not detected Coronavirus HKU1 (PCR) Not detected Coronavirus 229E (PCR) Not detected SARS-CoV-2 (PCR) Detected H Coronavirus NL63 (PCR) Not detected Human Metapneumovir PCR Not detected Influenza Type A (PCR) Not detected Influenza Type B (PCR) Not detected M. pneumoniae (PCR) Not detected Parainfluenza 1 (PCR) Not detected Parainfluenza 2 (PCR) Not detected Parainfluenza 3 (PCR) Not detected Parainfluenza 4 (PCR) Not detected RSV (PCR) Not detected Entero/Rhino (PCR) Not detected 12/15/22 12/15/22 12/15/22 11:40 11:40 11:40 WBC RBC Hgb Hct MCV MCH MCHC RDW Plt Count Neut % (Auto) Lymph % (Auto) [place] % (Auto) Eos % (Auto) Baso % (Auto) Neut # (Auto) Lymph # (Auto) [place] # (Auto) Eos # (Auto) Baso # (Auto) PT INR APTT D-Dimer 1045 H Sodium 143 Potassium 3.4 Chloride 104 Carbon Dioxide 28 BUN 36 H Creatinine 1.25 H Estimated GFR 43 L BUN/Creatinine Ratio 28.8 H Glucose 125 H Lactate 1.8 Calcium 9.7 Magnesium Total Bilirubin 0.6 AST 129 H ALT 40 H Alkaline Phosphatase 61 Total Creatine Kinase Troponin I NT-Pro-B Natriuret Pep Total Protein 7.7 Albumin 4.1 Globulin 3.6 Albumin/Globulin Ratio 1.1 Triglycerides Cholesterol LDL Cholesterol, Calc HDL Cholesterol Lipase 35 Procalcitonin 1.46 H Chlamy pneumoniae PCR Adenovirus (PCR) B. pertussis DNA (PCR) B.parapertussis DNA PCR Coronavirus OC43 (PCR) Coronavirus HKU1 (PCR) Coronavirus 229E (PCR) SARS-CoV-2 (PCR) Coronavirus NL63 (PCR) Human Metapneumovir PCR Influenza Type A (PCR) Influenza Type B (PCR) M. pneumoniae (PCR) Parainfluenza 1 (PCR) Parainfluenza 2 (PCR) Parainfluenza 3 (PCR) Parainfluenza 4 (PCR) RSV (PCR) Entero/Rhino (PCR) 12/15/22 12/15/22 12/15/22 11:40 14:19 14:19 WBC RBC Hgb Hct MCV MCH MCHC RDW Plt Count Neut % (Auto) Lymph % (Auto) [place] % (Auto) Eos % (Auto) Baso % (Auto) Neut # (Auto) Lymph # (Auto) [place] # (Auto) Eos # (Auto) Baso # (Auto) PT INR APTT D-Dimer Sodium Potassium Chloride Carbon Dioxide BUN Creatinine Estimated GFR BUN/Creatinine Ratio Glucose Lactate Calcium Magnesium 2.2 Total Bilirubin AST ALT Alkaline Phosphatase Total Creatine Kinase 3062 H 3040 H Troponin I 0.186 H* 0.175 H* NT-Pro-B Natriuret Pep 5080 H Total Protein Albumin Globulin Albumin/Globulin Ratio Triglycerides 84 Cholesterol 148 LDL Cholesterol, Calc 97 HDL Cholesterol 34 L Lipase Procalcitonin Chlamy pneumoniae PCR Adenovirus (PCR) B. pertussis DNA (PCR) B.parapertussis DNA PCR Coronavirus OC43 (PCR) Coronavirus HKU1 (PCR) Coronavirus 229E (PCR) SARS-CoV-2 (PCR) Coronavirus NL63 (PCR) Human Metapneumovir PCR Influenza Type A (PCR) Influenza Type B (PCR) M. pneumoniae (PCR) Parainfluenza 1 (PCR) Parainfluenza 2 (PCR) Parainfluenza 3 (PCR) Parainfluenza 4 (PCR) RSV (PCR) Entero/Rhino (PCR) Assessment & Plan Assessment & Plan narrative: Abigail Meadows is a 82 yr old female with a history thyroid goiter (hy perthyroidism/hypothyroidism), CHF, HTN, HLD who presented to the [facility] with weakness and dyspnea, after her neighbor found her down in her home after falling last night.? Patient admitted for acute hypoxic respiratory failure, CHF exacerbation, pneumonia, COVID-19, EDA, rhabdomyolysis and myocardial injury. Patient requires hospitalization for management of complex comorbidities. Acute respiratory failure, likely secondary to COVID-19, pneumonia, CHF exacerbation, present on admission * 87% on room air in the ED. she quickly escalated up requiring 5-7 L by mask, tachypneic RR 20-39 * Suspect this is secondary to COVID/possible bacterial pneumonia. * Respiratory consult as needed * Ordered VBG * Admit to the ICU Rhabdomyolysis secondary to ground level fall, found down (over 12hrs), acute, resulting in EDA, acute due to dehydration present on admission * CK 3040 * Gentle rehydration NS at 60 cc/HR * BUN 36, creatinine 1.25, GFR 43. Last labs 07/2022: BAGMAN/WOMAN 0.72, BUN 17, GFR>60 CHF exacerbation, acute on chronic, present on admission * No echo in medical records * Do not suspect that this is a CHF exacerbation as patient appears hypovolemic, suspect BNP is elevated secondary to COVID/pneumonia/myocardial injury. * Fluid restriction, low-sodium diet * Daily weights, strict I&O * Holding Lasix at this time due to signs of hypovolemia * Respiratory consult as needed * Hold HCTZ Pneumonia, acute, present on admission * Bacterial versus viral from [id number] out * Admit: temp 99.7?, 111/77, 95, 20, 95% on 7 L Mask * WBC 13.7, neutrophils 11,400, mono 1500, procalcitonin 1.46 * Empiric Levaquin 750 to cover for possible bacterial pneumonia, pending culture results. * Ordered CRP, VBG * Sputum cultures, blood cultures, urine cultures * CTA no PE. Patchy opacities in right base * Incentive spirometry, HFA inhaler as needed COVID-19, acute, present on admission * Admit: temp 99.7?, 111/77, 95, 20, 95% on 7 L Mask * Possible COVID-19 pneumonia * Dexamethasone, remdesivir * Respiratory consult as needed, incentive spirometry * DuoNeb HFA inhaler Myocardial injury, acute, as evidenced by troponin > 99th %, acute, aneurysm, acute, present on admission * Initial troponin 0.175, repeat 0.186 * Likely demand ischemia due to rhabdomyolysis fall and COVID infection. * Dr. Jules consulted recommended heparin drip x 24hrs * admitted under heparin drip protocol, assess for bleeding/neuro checks/guaiac as needed * Echo ordered, lipids, mag * EKG sinus tach rate 111, incomplete right BBB, unchanged from previous on 01/2019. * CTA no PE. 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 Circumferential thickening of the superior/mid esophagus. Thyroid goiter chronic, hyperthyroidism, chronic, present on admission * Managed by endocrinology * CTA no PE. Patchy opacities in right base, markedly enlarged and heterogeneous thyroid lobe possible goiter extends into the mediastinum causing a right left midline shift. * Continue methimazole Hypertension, essential, chronic, present on admission * Hold HCTZ * BP 111/77 on admit Hyperlipidemia, mixed, chronic, present on admission * Continue pravastatin or replacement * Lipids ordered Obesity, moderate, acute on chronic, present on admission * As evidence by BMI 35.9 * dietary consult ordered regarding nutritional education and information for dietary, lifestyle, exercise, and weight changes. * the patient is at much higher risk for medical and surgical complications due to obesity as it relates to chronic illnesses:, and acute illness. The patient's obesity increases the difficulty and complexity of medical and/or surgical interventions, management and increases the chances of poor outcome such as morbidity and mortality as well as impaired wound healing. Code status: Full Surrogate decision maker: Friend Zane Hernández DVT/VTE prophylaxis: Heparin drip, SCDs Disposition: Patient admitted to the ICU for complex management of multiple comorbidities, expected length of stay to exceed 2 midnights. I have utilized all available immediate resources to obtain, update, or review the patient's current medications. I confirmed that the patient's advanced care plan is present, Code status is documented and/or surrogate decision maker is listed in the patient's medical record. I have personally reviewed patient's chart notes from PCP, specialists, diagnostic imaging, and laboratory results.
[2022-12-15] MEDS: levoFLOXacin 750 MG/150 ML PIGGYBACK 100 MG IV (22:13)
[2022-12-15] MEDS: FUROSEMIDE 20 MG/2 ML VIAL IV (22:14)
[2022-12-15] MEDS: SENNOSIDES 8.6 MG TABLET 17.2 MG PO (22:14)
[2022-12-15] MEDS: DOCUSATE 100 MG CAPSULE PO (22:14)
[2022-12-15 22:43] LABS: PTT Partial Thromboplastin Tim > 400 SECONDS (26-36)
[2022-12-15 23:03] LABS: MRSA (Nasal) PCR Not Detected (Not Detect)
--- NOTE | 2022-12-15 23:04 | PC.NURSE ---
Addendum entered by Jud Rudolph R.N. 12/16/22 06:52: I agree with Yasemin Alvarez assessments, interventions, and documentation. Addendum entered by Yasemin Cash R.N. 12/16/22 06:47: Per provider order, administered PO and IV Potassium to patient. 0230 PTT lab was critical high at 218; RN stopped Heparin gtt per protocol, assessed patient for bleeding and notified provider of lab value. Pt VS were normal and reported to provider that patient was now on 4L oximask with SPO2 in mid 90s. RN restarted Heparin gtt one hour later per protocol. At end of shift, patient resting comfortably and VS within normal limits. Original Note: Spoke with provider relaying critical APTT (heparin bolus and drip just started 2h prior to draw); provider acknowledged and recommended monitoring for bleeding. Provider said to recheck APTT at 0230. At admission did full assessment to see if any bleeding; no bleeding found. Notified provider of arrythmia on telemetry. Provider said to add potassium to labs just drawn.
[2022-12-15 23:09] LABS: HEMOLYSIS < 15 (0-50); Potassium 3.3 mmol/L (3.4-5.1)
[2022-12-16] VITALS (32 sets, daily range): BP systolic 115–187; BP diastolic 58–81; PULSE 75–106; RESP 12–40; TEMP 36.4–37.4; O2SAT 87–96
[2022-12-16] MEDS: POTASSIUM CHLORIDE 20 MEQ TAB 40 MEQ PO (00:02)
[2022-12-16] MEDS: POTASSIUM CHLORIDE IN WATER 10 MEQ/100 ML PIGGYBACK 100 MEQ IV ×4 (00:02→03:50)
[2022-12-16 01:35] LABS: C-Reactive Protein Quant 15.3 mg/dL (<1.0)
[2022-12-16 03:18] LABS: HCO3 VBG 30 mmol/L (24-28); PCO2 VBG 43.4 mmHg (45-50); PO2 VBG 55 mmHg (35-45); pH VBG 7.44 (7.33-7.43)
[2022-12-16 03:19] LABS: Fractionated Inspired Oxygen 36; Oxygen Saturation VBG 89 % (70-75); Total CO2 VBG 31 mmol/L (24-29)
[2022-12-16 03:23] LABS: Alanine Aminotransferase 48 IU/L (<35); Albumin 3.7 g/dL (3.5-5.0); Alkaline Phosphatase 52 U/L (38-126); Aspartate Aminotransferase 153 IU/L (14-36); BUN Creatinine Ratio 35.6 (6-22); Bilirubin Total 0.6 mg/dL (0.2-1.3); Blood Urea Nitrogen 37 mg/dL (7-17); Carbon Dioxide 30 mmol/L (22-32); Chloride 101 mmol/L (98-107); Estimated Glomerular Filt Rate 54 mL/min (>60); Globulin 3.7 g/dL (1.7-4.1); Glucose 95 mg/dL (80-110); HEMOLYSIS < 15 (0-50); Sodium 139 mmol/L (137-145); Total Protein 7.4 g/dL (6.3-8.2)
[2022-12-16 03:34] LABS: Troponin I 0.104 ng/mL (0.01-0.034)
[2022-12-16 03:35] LABS: Add Manual Diff / Slide Review NO; Basophils Absolute Auto 0 /uL (0-100); Basophils Percent Auto 0.3 % (0-2); Eosinophils Absolute Auto 0 /uL (0-450); Hematocrit 42.7 % (36-46); Hemoglobin 14.5 g/dL (12.0-16.0); Lymphocytes Absolute Auto 1500 /uL (1100-4500); Lymphocytes Percent Auto 11.8 % (25-40); Mean Corpuscular HGB Conc 33.9 % (30-36); Mean Corpuscular Hemoglobin 31.7 PG (26-34); Mean Corpuscular Volume 93.7 fL (80-100); Monocytes Absolute Auto 1200 /uL (0-900); Monocytes Percent Auto 9.9 % (3-14); Neutrophils Absolute Auto 9700 /uL (1500-7000); Platelet Count 252 X10^3/uL (150-400); Red Blood Cell Count 4.56 X10^6/uL (4.0-5.2); Red Cell Distribution Width 13.9 % (11.6-14.8); White Blood Cell Count 12.4 X10^3/uL (4.5-11.0)
[2022-12-16] MEDS: SODIUM CHLORIDE 0.9% 1,000 ML 60 ML IV (03:48)
[2022-12-16 03:51] LABS: PTT Partial Thromboplastin Tim 218 SECONDS (26-36)
[2022-12-16] MEDS: DEXAMETHASONE 10 MG/ML VIAL 6 MG IV (08:51)
[2022-12-16] MEDS: DOCUSATE 100 MG CAPSULE PO ×2 (08:53→20:48)
[2022-12-16] MEDS: polyethylene glycoL 3350 17 GM POWD.PACK PO (08:53)
[2022-12-16] MEDS: SODIUM CHLORIDE 0.9% FLUSH 10 ML IV ×2 (08:54→21:02)
--- NOTE | 2022-12-16 10:57 | CM.DANOTE ---
Initial DCP Assessment Note Pt is an 82 yo female, resident of [place], admitted after a fall at home, found by a neighbor. Patient found to be COVID+ with NSTEMI and new dx of heart failure, currently on 4L of O2 with chronic Thyroid goiter PCP: Elsa Donato Payer: [employer] Only and ej (dual coverage) Reviewed chart, patient indp in her home at baseline Patient COVID+ visiting with a friend at bedside currently. At this point in the medical POC, unsure next steps. PT will be helpful when medically appropriate. If SNF is recommended, COVID+ would likely be a barrier Anticipate hospital transfer if deteriorates (?) vs home w/friends and HH, following closely for coordination of DCP. Will attempt assessment by phone over the next 24 hrs AMADO Colbert Discharge Planning/Care Management CM Discharge Assessment Start: 12/16/22 10:48 Freq: Status: Active Protocol: Document 12/16/22 10:48 TYRESE (Rec: 12/16/22 10:57 [email or web address] [id number]) Discharge Planning Assessment Assigned Director Of Programming AMADO Colby DPOA/Assigned Designee Name Zane Toure, family Contact Information [phone] Advance Directives? No History Provided By Patient,Medical Record Prior Living Arrangements House Household Members none,other Type of transporation used prior to Drives own vehicle admit Independent with ADL's Yes Is patient alert and oriented? Yes Barriers to Discharge Yes Comment Patient is quite sick and may benefit from a hospital transfer according to Dr Padilla Transportation Arrangement TBD Referrals Initiated Other Additional Comment TBD
[2022-12-16 11:26] LABS: PTT Partial Thromboplastin Tim 57 SECONDS (26-36)
[2022-12-16] MEDS: REMDESIVIR 100 MG in SODIUM CHLORIDE 0.9% 250 ML 250 MG IV (11:58)
[2022-12-16] MEDS: ENOXAPARIN 100 MG/ML SYRINGE 90 MG SUBCUT ×2 (13:20→20:48)
--- NOTE | 2022-12-16 14:35 | P.PN_ITS ---
Subjective Subjective Interval history: 82 F admitted with acute hypoxic respiratory failure, NSTEMI, rhabdomyolysis, acute diastolic heart failure, COVID and bacterial pneumonia. 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 She denies history of heart failure to me, and no outpatient record of heart failure is noted. Her oxygen requirements are slowly improving today. Echocardiogram is noted below in A&P section. She denies chest pain, nausea, or vomiting. I did discuss with cardiology given new diagnosis of heart failure and NSTEMI management and need for LHC. Dr. Jules from cardiology recommended medical management and outpatient LHC if her chest pain has resolved given patient's concurrent COVID and bacterial pneumonia diagnosis. She has been on a heparin infusion, but will be transitioned to Lovenox for NSTEMI management given no LHC planned. She will then continue with medical management with asa and statin therapy. Statin therapy has been ordered. Exam Vital Signs (past 8 hours): - 12/16/22 07:00 12/16/22 07:00 12/16/22 08:00 Temperature Pulse Rate 97 H Respiratory Rate 25 H Blood Pressure 122/62 132/63 Pulse Oximetry 93 Oxygen Delivery Method 12/16/22 08:00 12/16/22 09:00 12/16/22 09:00 Temperature 97.5 F L Pulse Rate 96 H 104 H Respiratory Rate 25 H 19 Blood Pressure 122/62 Pulse Oximetry 94 87 L Oxygen Delivery Method 12/16/22 10:00 12/16/22 10:00 12/16/22 10:00 Temperature Pulse Rate 99 H Respiratory Rate 32 H Blood Pressure 121/64 Pulse Oximetry 93 Oxygen Delivery Method Nasal Cannula 12/16/22 11:00 12/16/22 11:00 12/16/22 12:00 Temperature Pulse Rate 92 H Respiratory Rate 22 Blood Pressure 125/63 142/65 H Pulse Oximetry 93 Oxygen Delivery Method 12/16/22 12:00 12/16/22 13:00 12/16/22 13:00 Temperature Pulse Rate 91 H 102 H Respiratory Rate 22 14 Blood Pressure 131/65 Pulse Oximetry 93 92 Oxygen Delivery Method 12/16/22 12:00 Temperature Pulse Rate Respiratory Rate Blood Pressure Pulse Oximetry Oxygen Delivery Method Nasal Cannula Oxygen Delivery Method Nasal Cannula Oxygen Flow Rate 5 Narrative Exam Narrative: General: Patient is a well-developed, well-nourished elderly female in no distress at this time, resting comfortably on nasal cannula. HEENT: Normocephalic, R facial bandage in place. extraocular muscles intact, oral pharynx is clear and mucous membranes are moist Chest: Equal chest rise without nasal flaring, retractions, tachypneic or labored breathing. Lungs: Decreased breath sounds bilateral lung bases, LLL rales. Cardio: regular rate and rhythm without murmur, rubs, or gallops Abdomen: S NT ND Musculoskeletal: Muscle strength and tone are equal, no deformity. There is trace to 1+ b/l LE edema. Skin: Warm dry and intact without rashes, ulcerations or petechiae. Neuro: Alert and orientated x3, moves all extremities, sensation to touch intact, no gross deficits noted of cranial nerves. Psych: Patient has a well-kept appearance, appropriate affect, mental status attitude thought context and judgment are appropriate for age. Objective ECG Impression: Sinus tachycardia Possible Left atrial enlargement Incomplete right bundle branch block Left anterior fascicular block Labs 12/16/22 03:02 12/16/22 03:02 Labs: Laboratory Results - last 24 hr 12/15/22 12/15/22 12/15/22 14:19 14:19 20:32 WBC RBC Hgb Hct MCV MCH MCHC RDW Plt Count Neut % (Auto) Lymph % (Auto) [place] % (Auto) Eos % (Auto) Baso % (Auto) Neut # (Auto) Lymph # (Auto) [place] # (Auto) Eos # (Auto) Baso # (Auto) APTT VBG pH 7.44 H VBG pCO2 43.4 L VBG pO2 55 H VBG HCO3 30 H VBG Total CO2 31 H VBG O2 Saturation 89 H VBG Base Excess 5.0 H FiO2 36 Sodium Potassium Chloride Carbon Dioxide BUN Creatinine Estimated GFR BUN/Creatinine Ratio Glucose Calcium Magnesium 2.2 Total Bilirubin AST ALT Alkaline Phosphatase Total Creatine Kinase 3040 H Troponin I 0.175 H* C-Reactive Protein Total Protein Albumin Globulin Albumin/Globulin Ratio Triglycerides 84 Cholesterol 148 LDL Cholesterol, Calc 97 HDL Cholesterol 34 L Nasal Screen MRSA (PCR) 12/15/22 12/15/2212/15/23 21:48 22:07 22:07 WBC RBC Hgb Hct MCV MCH MCHC RDW Plt Count Neut % (Auto) Lymph % (Auto) [place] % (Auto) Eos % (Auto) Baso % (Auto) Neut # (Auto) Lymph # (Auto) [place] # (Auto) Eos # (Auto) Baso # (Auto) APTT > 400 H* D VBG pH VBG pCO2 VBG pO2 VBG HCO3 VBG Total CO2 VBG O2 Saturation VBG Base Excess FiO2 Sodium Potassium 3.3 L Chloride Carbon Dioxide BUN Creatinine Estimated GFR BUN/Creatinine Ratio Glucose Calcium Magnesium Total Bilirubin AST ALT Alkaline Phosphatase Total Creatine Kinase Troponin I C-Reactive Protein Total Protein Albumin Globulin Albumin/Globulin Ratio Triglycerides Cholesterol LDL Cholesterol, Calc HDL Cholesterol Nasal Screen MRSA (PCR) Not detected 12/15/22 12/16/22 12/16/22 22:07 03:02 03:02 WBC 12.4 H RBC 4.56 Hgb 14.5 Hct 42.7 MCV 93.7 MCH 31.7 MCHC 33.9 RDW 13.9 Plt Count 252 Neut % (Auto) 78.0 H Lymph % (Auto) 11.8 L [place] % (Auto) 9.9 Eos % (Auto) 0.0 L Baso % (Auto) 0.3 Neut # (Auto) 9700 H Lymph # (Auto) 1500 [place] # (Auto) 1200 H Eos # (Auto) 0 Baso # (Auto) 0 APTT 218 H* D VBG pH VBG pCO2 VBG pO2 VBG HCO3 VBG Total CO2 VBG O2 Saturation VBG Base Excess FiO2 Sodium Potassium Chloride Carbon Dioxide BUN Creatinine Estimated GFR BUN/Creatinine Ratio Glucose Calcium Magnesium Total Bilirubin AST ALT Alkaline Phosphatase Total Creatine Kinase Troponin I C-Reactive Protein 15.3 H Total Protein Albumin Globulin Albumin/Globulin Ratio Triglycerides Cholesterol LDL Cholesterol, Calc HDL Cholesterol Nasal Screen MRSA (PCR) 12/16/22 12/16/22 12/16/22 03:02 03:02 10:50 WBC RBC Hgb Hct MCV MCH MCHC RDW Plt Count Neut % (Auto) Lymph % (Auto) [place] % (Auto) Eos % (Auto) Baso % (Auto) Neut # (Auto) Lymph # (Auto) [place] # (Auto) Eos # (Auto) Baso # (Auto) APTT 57 H D VBG pH VBG pCO2 VBG pO2 VBG HCO3 VBG Total CO2 VBG O2 Saturation VBG Base Excess FiO2 Sodium 139 Potassium 4.0 Chloride 101 Carbon Dioxide 30 BUN 37 H Creatinine 1.04 Estimated GFR 54 L BUN/Creatinine Ratio 35.6 H Glucose 95 Calcium 9.0 Magnesium 2.0 Total Bilirubin 0.6 AST 153 H ALT 48 H Alkaline Phosphatase 52 Total Creatine Kinase Troponin I 0.104 H C-Reactive Protein Total Protein 7.4 Albumin 3.7 Globulin 3.7 Albumin/Globulin Ratio 1.0 Triglycerides Cholesterol LDL Cholesterol, Calc HDL Cholesterol Nasal Screen [facility] (PCR) [facility] Medical History Ankle pain Cataracts, bilateral (~2004) Colon polyps Hyperlipidemia Hypertension Hyperthyroidism Hypothyroidism (~1990) Obesity (BMI 35.0-39.9 without comorbidity) Osteoarthritis (~2004) Shingles Surgical History Anesthesia Fracture History of cataract removal with insertion of prosthetic lens Status post colonoscopy (01/14/14) Status post colonoscopy (01/18/11) Family History Mother Age: 111 Hypertension Brother No problems noted. Father No problems noted. Social History marital status: unmarried,single number of children: 0 household members: none and other lives independently: Yes education level: vocational occupational status: other Smoking Status: Never smoker alcohol intake: former substance use type: does not use Assessment & Plan Assessment & Plan narrative: 82 F with PMH of hyperthyroidism admitted with acute hypoxic respiratory failure, NSTEMI, rhabdomyolysis, acute diastolic heart failure, COVID and bacterial pneumonia. #Sepsis with Acute respiratory failure with hypoxia, EDA secondary to COVID 19 and bacterial pneumonia. - SOFA score of >2 given respiratory failure and EDA - continue ceftriaxone and azithromycin, continue dexamethasone 6 mg IV daily and remdesevir until off of supplemental oxygen. - avoid further fluids at this time given acute heart failure in the setting of NSTEMI. - continue to wean O2 as tolerated with goal O2 90-96% on RA. #NSTEMI with acute diastolic heart failure. - Patient admitted with signs of acute heart failure, volume overload on CXR, elevated troponins at 0.186, managing medically as NSTEMI. 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 Patient denies prior history of heart failure. - Discussed with Dr. Jules of [facility] cardiology. Recommends medical management with treatment of heart failure, aspirin and statin therapy and outpatient LHC if symptoms are controlled with medical therapy. Given no LHC planned, have tr ansitioned today from heparin infusion to 48 hours of Lovenox for NSTEMI management. - start statin therapy, atorvastatin 80 mg - start aspirin 81 mg daily after completion of Lovenox #Rhabdomyolysis secondary to ground level fall, found down (over 12hrs), acute, resulting in EDA, acute due to dehydration present on admission - CK 3040, will continue to follow. Stop IV fluids given acute heart failure above. 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 She has no dysphagia symptoms at the moment, and I do not suspect it at this time to be contributing to her respiratory symptoms. Though should she complete therapy of the above processes and still have dyspnea, consider transfer or outpatient evaluation for surgical management. * CTA no PE. Patchy opacities in right base, markedly enlarged and hetero geneous thyroid lobe possible goiter extends into the mediastinum causing a right left midline shift. * Continue methimazole * TSH was requested yesterday before admission but not performed will order. #Hypertension, essential, chronic, present on admission * hold home HCTZ in setting of sepsis, will also diurese as discussed above. #Hyperlipidemia, mixed, chronic, present on admission * change home statin to high intensity given treatment for NSTEMI. #Obesity, moderate, acute on chronic, present on admission * As evidence by BMI 35.9 * dietary consult ordered regarding nutritional education and information for dietary, lifestyle, exercise, and weight changes. * the patient is at much higher risk for medical and surgical complications due to obesity as it relates to chronic illnesses:, and acute illness. The patient's obesity increases the difficulty and complexity of medical and/or surgical interventions, management and increases the chances of poor outcome such as morbidity and mortality as well as impaired wound healing. Code status: Full Surrogate decision maker: Friend Zane Hernández DVT/VTE prophylaxis: on Therapeutic Lovenox Disposition: Inpatient, probable discharge home but can start therapy evaluations tomorrow. Quality VTE Deep Vein Thrombosis/Pulmonary Embolism Present on Admission: No
[2022-12-16] MEDS: FUROSEMIDE 40 MG/4 ML VIAL IV (15:52)
--- NOTE | 2022-12-16 18:26 | PC.NURSE ---
Constipation/activity/discharge follow-up Pt. reports chronic constipation with home bowel regimen in use. Medium BM in evening using BSC. Pt. ambulates independently with walker/cane at home, awaiting PT eval. OOB with 2-assist and FWW, sat in chair for dinner and transferred to BSC, able to move well with moderate assist. Pt. requests friend/advocate, Annita (number on board), be contacted by social work for discharge planning.
[2022-12-16] MEDS: SENNOSIDES 8.6 MG TABLET 17.2 MG PO (20:48)
--- NOTE | 2022-12-16 21:53 | PC.NURSE ---
During med pass, patient refused taking atorvastatin. Pt says the side effects are negative and cause her pain and cramps. RN educated patient on NSTEMI and indications for the statin. Pt understood risks and pt stated that she wanted to speak with the provider during rounds about the statin tomorrow morning. RN will pass on to following RN to ensure patient's questions get answered.
[2022-12-17] VITALS (20 sets, daily range): BP systolic 127–149; BP diastolic 66–80; PULSE 65–94; RESP 11–26; TEMP 36.5–37.1; O2SAT 89–97
[2022-12-17 05:09] LABS: Add Manual Diff / Slide Review NO; Basophils Absolute Auto 0 /uL (0-100); Basophils Percent Auto 0.2 % (0-2); Eosinophils Absolute Auto 0 /uL (0-450); Hematocrit 41.7 % (36-46); Hemoglobin 14.1 g/dL (12.0-16.0); Lymphocytes Absolute Auto 1300 /uL (1100-4500); Lymphocytes Percent Auto 10.9 % (25-40); Mean Corpuscular HGB Conc 33.9 % (30-36); Mean Corpuscular Hemoglobin 31.6 PG (26-34); Mean Corpuscular Volume 93.2 fL (80-100); Monocytes Absolute Auto 1100 /uL (0-900); Monocytes Percent Auto 9.1 % (3-14); Neutrophils Absolute Auto 9300 /uL (1500-7000); Neutrophils Percent Auto 79.8 % (50-75); Platelet Count 258 X10^3/uL (150-400); Red Blood Cell Count 4.48 X10^6/uL (4.0-5.2); Red Cell Distribution Width 13.9 % (11.6-14.8); White Blood Cell Count 11.6 X10^3/uL (4.5-11.0)
[2022-12-17 05:22] LABS: PTT Partial Thromboplastin Tim 43 SECONDS (26-36)
[2022-12-17 05:34] LABS: Alanine Aminotransferase 57 IU/L (<35); Albumin 3.6 g/dL (3.5-5.0); Alkaline Phosphatase 53 U/L (38-126); Aspartate Aminotransferase 125 IU/L (14-36); BUN Creatinine Ratio 45.2 (6-22); Bilirubin Total 0.4 mg/dL (0.2-1.3); Blood Urea Nitrogen 47 mg/dL (7-17); Calcium 9.4 mg/dL (8.4-10.2); Carbon Dioxide 30 mmol/L (22-32); Chloride 100 mmol/L (98-107); Estimated Glomerular Filt Rate 54 mL/min (>60); Globulin 3.7 g/dL (1.7-4.1); Glucose 99 mg/dL (80-110); HEMOLYSIS < 15 (0-50); Sodium 138 mmol/L (137-145); Total Protein 7.3 g/dL (6.3-8.2)
[2022-12-17 06:03] LABS: TSH w/ Reflex to FT4 1.05 uIU/mL (0.47-4.68)
--- NOTE | 2022-12-17 06:39 | PC.NURSE ---
I agree with Yasemin Alvarez assessments, interventions, and documentations.
[2022-12-17] MEDS: ENOXAPARIN 100 MG/ML SYRINGE 90 MG SUBCUT ×2 (08:38→21:35)
[2022-12-17] MEDS: DEXAMETHASONE 10 MG/ML VIAL 6 MG IV (08:39)
[2022-12-17] MEDS: DOCUSATE 100 MG CAPSULE PO ×2 (08:39→21:35)
[2022-12-17] MEDS: FUROSEMIDE 40 MG/4 ML VIAL IV (08:39)
[2022-12-17] MEDS: SODIUM CHLORIDE 0.9% FLUSH 10 ML IV ×2 (08:41→21:36)
[2022-12-17] MEDS: polyethylene glycoL 3350 17 GM POWD.PACK PO (08:41)
[2022-12-17] MEDS: REMDESIVIR 100 MG in SODIUM CHLORIDE 0.9% 250 ML 250 MG IV (09:09)
--- NOTE | 2022-12-17 16:29 | PM.PN.1 ---
Exam Vital Signs (past 8 hours): - 12/17/22 09:00 12/17/22 10:00 12/17/22 11:00 Pulse Rate 94 H 79 83 Respiratory Rate 22 16 12 Pulse Oximetry 90 L 92 93 Oxygen Delivery Method Oxygen Flow Rate Fraction of Inspired Oxygen 12/17/22 12:00 12/17/22 15:05 Pulse Rate 72 Respiratory Rate 21 Pulse Oximetry 91 97 Oxygen Delivery Method Nasal Cannula Oxygen Flow Rate 2 Fraction of Inspired Oxygen 28 Fraction of Inspired Oxygen 28 SaO2/FiO2 Ratio 346 Oxygen Delivery Method Nasal Cannula Oxygen Flow Rate 2 Narrative Exam Narrative: General:? Patient is a well-developed, well-nourished elderly female in no distress at this time, resting comfortably on nasal cannula. HEENT:? Normocephalic, R facial bandage in place. extraocular muscles intact, oral pharynx is clear and mucous membranes are moist Chest: Equal chest rise without nasal flaring, retractions, tachypneic or labored breathing. Lungs: Decreased breath sounds somewhat bilateral lung bases, LLL rales minimal. Cardio: regular rate and rhythm without murmur, rubs, or gallops Abdomen: S NT ND Musculoskeletal:? Muscle strength and tone are equal, no deformity. There is trace to 1+ b/l LE edema. Skin:? Warm dry and intact without rashes, ulcerations or petechiae.? Neuro:? Alert and orientated x3, moves all extremities, sensation to touch intact, no gross deficits noted of cranial nerves. Psych:? Patient has a well-kept appearance, appropriate affect, mental status attitude thought context and judgment are appropriate for age. Objective Labs 12/17/22 04:24 12/17/22 04:24 Labs: Laboratory Results - last 24 hr 12/15/22 12/17/22 12/17/22 20:32 04:24 04:24 WBC 11.6 H RBC 4.48 Hgb 14.1 Hct 41.7 MCV 93.2 MCH 31.6 MCHC 33.9 RDW 13.9 Plt Count 258 Neut % (Auto) 79.8 H Lymph % (Auto) 10.9 L [place] % (Auto) 9.1 Eos % (Auto) 0.0 L Baso % (Auto) 0.2 Neut # (Auto) 9300 H Lymph # (Auto) 1300 [place] # (Auto) 1100 H Eos # (Auto) 0 Baso # (Auto) 0 APTT VBG pH 7.44 H VBG pCO2 43.4 L VBG pO2 55 H VBG HCO3 30 H VBG Total CO2 31 H VBG O2 Saturation 89 H VBG Base Excess 5.0 H FiO2 36 Sodium 138 Potassium 4.0 Chloride 100 Carbon Dioxide 30 BUN 47 H Creatinine 1.04 Estimated GFR 54 L BUN/Creatinine Ratio 45.2 H Glucose 99 Calcium 9.4 Magnesium 2.0 Total Bilirubin 0.4 AST 125 H ALT 57 H Alkaline Phosphatase 53 Total Protein 7.3 Albumin 3.6 Globulin 3.7 Albumin/Globulin Ratio 1.0 TSH 12/17/22 12/17/22 04:24 04:24 WBC RBC Hgb Hct MCV MCH MCHC RDW Plt Count Neut % (Auto) Lymph % (Auto) [place] % (Auto) Eos % (Auto) Baso % (Auto) Neut # (Auto) Lymph # (Auto) [place] # (Auto) Eos # (Auto) Baso # (Auto) APTT 43 H D VBG pH VBG pCO2 VBG pO2 VBG HCO3 VBG Total CO2 VBG O2 Saturation VBG Base Excess FiO2 Sodium Potassium Chloride Carbon Dioxide BUN Creatinine Estimated GFR BUN/Creatinine Ratio Glucose Calcium Magnesium Total Bilirubin AST ALT Alkaline Phosphatase Total Protein Albumin Globulin Albumin/Globulin Ratio TSH 1.05 PFSH Medical History Ankle pain Cataracts, bilateral (~2004) Colon polyps Hyperlipidemia Hypertension Hyperthyroidism Hypothyroidism (~1990) Obesity (BMI 35.0-39.9 without comorbidity) Osteoarthritis (~2004) Shingles Surgical History Anesthesia Fracture History of cataract removal with insertion of prosthetic lens Status post colonoscopy (01/14/14) Status post colonoscopy (01/18/11) Family History Mother Age: 111 Hypertension Brother No problems noted. Father No problems noted. Social History marital status: unmarried,single number of children: 0 household members: none and other lives independently: Yes education level: vocational occupational status: other Smoking Status: Never smoker alcohol intake: former substance use type: does not use Assessment & Plan Assessment & Plan narrative: #Sepsis with Acute respiratory failure with hypoxia, EDA secondary to COVID 19 and bacterial pneumonia. ?- SOFA score of >2 given respiratory failure and EDA ?- continue ceftriaxone and azithromycin, continue dexamethasone 6 mg IV daily and remdesevir until off of supplemental oxygen. ?- avoid further fluids at this time given acute heart failure in the setting of NSTEMI. ?- continue to wean O2 as tolerated with goal O2 90-96% on RA. -at the time of examination today, patient is on room air sitting in the chair #NSTEMI with acute diastolic heart failure. ?- Patient admitted with signs of acute heart failure, volume overload on CXR, elevated troponins at 0.186, managing medically as NSTEMI. 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 Patient denies prior history of heart failure. ?- Discussed with Dr. Jules of [facility] cardiology. Recommends medical management with treatment of heart failure, aspirin and statin therapy and outpatient LHC if symptoms are controlled with medical therapy. Given no LHC planned, have transitioned today from heparin infusion to 48 hours of Lovenox for NSTEMI management. ?- start statin therapy, atorvastatin 80 mg -continue ?- start aspirin 81 mg daily after completion of Lovenox #Rhabdomyolysis secondary to ground level fall, found down (over 12hrs), acute, resulting in EDA, acute due to dehydration present on admission ?- CK 3040, will continue to follow. Stop IV fluids given acute heart failure above. ?- continue to follow renal function, measure creatine kinase tomorrow #COVID-19, acute, present on admission Dexamethasone, remdesivir as noted above #Thyroid goiter, presumed chronic, hyperthyroidism, chronic, present on admission Managed by endocrinology - though their documentation makes it unclear as to the apparent size and no imaging reports are available for review with regards to her thyroid size, only a uptake scan which does not comment on size. She has no dysphagia symptoms at the moment, and I do not suspect it at this time to be contributing to her respiratory symptoms. Though should she complete therapy of the above processes and still have dyspnea, consider transfer or outpatient evaluation for surgical management. CTA no PE.? Patchy opacities in right base, markedly enlarged and heterogeneous thyroid lobe possible goiter extends into the mediastinum causing a right left midline shift. Continue methimazole TSH was requested yesterday before admission but not performed-now measured as normal. #Hypertension, essential, chronic, present on admission hold home HCTZ in setting of sepsis, will also diurese as discussed above. #Hyperlipidemia, mixed, chronic, present on admission change home statin to high intensity given treatment for NSTEMI. #Obesity, moderate, acute on chronic, present on admission As evidence by BMI 35.9 dietary consult ordered regarding nutritional education and information for dietary, lifestyle, exercise, and weight changes. the patient is at much higher risk for medical and surgical complications due to obesity as it relates to chronic illnesses:, and acute illness.? The patient's obesity increases the difficulty and complexity of medical and/or surgical interventions, management and increases the chances of poor outcome such as morbidity and mortality as well as impaired wound healing. Follow clinically and labs. Code status:? Full Surrogate decision maker:? Friend? Zane Ristaufrimary jane DVT/VTE prophylaxis:? on? Therapeutic Lovenox Quality VTE Deep Vein Thrombosis/Pulmonary Embolism Present on Admission: No
[2022-12-17] MEDS: levoFLOXacin 750 MG/150 ML PIGGYBACK 100 MG IV (21:34)
[2022-12-17] MEDS: SENNOSIDES 8.6 MG TABLET 17.2 MG PO (21:35)
[2022-12-18] VITALS: BP 143/79; PULSE 71; RESP 22; TEMP 36.7; O2SAT 92
[2022-12-18 04:00] VITALS: BP 145/79; PULSE 70; RESP 18; TEMP 36.4; O2SAT 93
[2022-12-18 04:58] LABS: Add Manual Diff / Slide Review NO; Basophils Absolute Auto 100 /uL (0-100); Basophils Percent Auto 0.6 % (0-2); Eosinophils Absolute Auto 0 /uL (0-450); Hematocrit 41.3 % (36-46); Lymphocytes Absolute Auto 1400 /uL (1100-4500); Lymphocytes Percent Auto 14.2 % (25-40); Mean Corpuscular HGB Conc 33.9 % (30-36); Mean Corpuscular Hemoglobin 31.5 PG (26-34); Mean Corpuscular Volume 92.8 fL (80-100); Monocytes Absolute Auto 1000 /uL (0-900); Monocytes Percent Auto 9.7 % (3-14); Neutrophils Absolute Auto 7500 /uL (1500-7000); Neutrophils Percent Auto 75.5 % (50-75); Platelet Count 262 X10^3/uL (150-400); Red Blood Cell Count 4.45 X10^6/uL (4.0-5.2); Red Cell Distribution Width 13.4 % (11.6-14.8)
[2022-12-18 05:01] LABS: Creatine Kinase 339 U/L (30-135)
[2022-12-18 05:03] LABS: Alanine Aminotransferase 71 IU/L (<35); Albumin 3.4 g/dL (3.5-5.0); Alkaline Phosphatase 43 U/L (38-126); Aspartate Aminotransferase 99 IU/L (14-36); BUN Creatinine Ratio 57.1 (6-22); Bilirubin Total 0.6 mg/dL (0.2-1.3); Blood Urea Nitrogen 48 mg/dL (7-17); Calcium 9.3 mg/dL (8.4-10.2); Carbon Dioxide 32 mmol/L (22-32); Chloride 97 mmol/L (98-107); Estimated Glomerular Filt Rate > 60 mL/min (>60); Globulin 3.4 g/dL (1.7-4.1); Glucose 102 mg/dL (80-110); HEMOLYSIS 21 (0-50); Magnesium 1.8 mg/dL (1.6-2.3); Sodium 137 mmol/L (137-145); Total Protein 6.8 g/dL (6.3-8.2)
[2022-12-18 07:36] VITALS: BP 142/71; PULSE 83; RESP 14; TEMP 36.4; O2SAT 92
[2022-12-18] MEDS: ACETAMINOPHEN 325 MG TABLET 650 MG PO (07:39)
[2022-12-18] MEDS: DEXAMETHASONE 10 MG/ML VIAL 6 MG IV (08:43)
[2022-12-18] MEDS: polyethylene glycoL 3350 17 GM POWD.PACK PO (08:43)
[2022-12-18] MEDS: FUROSEMIDE 40 MG/4 ML VIAL IV (08:43)
[2022-12-18] MEDS: DOCUSATE 100 MG CAPSULE PO ×2 (08:44→20:26)
[2022-12-18] MEDS: SODIUM CHLORIDE 0.9% FLUSH 10 ML IV ×2 (08:48→20:26)
--- NOTE | 2022-12-18 08:53 | CM.DPC ---
Reviewed chart with existing information, and patient discussed in multidisciplinary rounds this morning. Met with patient and introduced to care coordination and discharge planning. They agree to assessment. Pt is a admitted for COVID, NSTEMI, fall at home. Sitting up in chair eating breakfast now weaned off 02 as per NASEEM Tellez. Patient states she will be able to go home tomorrow. Plan for PT OT evals today. DCP is for home with possible HH RN, PT, OT and CR[employer] UNION EXAMINER PCP: Adilia Hickey DME: [id number] Payer: Patient states she only has Medicare Part B secondary to working for the [employer] for years. Health teaching done re: Medicare resources to learn Part A eligibility and/or navigate Medicare choices. Barriers: strength and mobility given 3 day hospitalization, obese, deconditioned, lives alone with cat, only friends, no current designated MPOA. She states she is in a planning mode with her legal documents for LW and MPOA. She states she will likley appoint friends Zane and Annita Jacquelineviviana [phone] who live in [place] and may visit today. Alisha Hunt RN CM
[2022-12-18] MEDS: REMDESIVIR 100 MG in SODIUM CHLORIDE 0.9% 250 ML 250 MG IV (09:14)
--- NOTE | 2022-12-18 10:46 | P.PN_ITS ---
Subjective Subjective Interval history: Continues to feel better. Still requiring oxygen at night but again during the day now is on O2 room air. Is to improve her mobility as well. Still somewhat weak for independent mobility. No new complaints from patient or nursing. Exam Vital Signs (past 8 hours): - 12/18/22 04:00 12/18/22 07:36 12/18/22 07:00 Temperature 97.5 F L 97.5 F L Pulse Rate 70 83 Respiratory Rate 18 14 Blood Pressure 145/79 H 142/71 H Pulse Oximetry 93 92 Oxygen Delivery Method Room Air Oxygen Flow Rate 2 Fraction of Inspired Oxygen 28 SaO2/FiO2 Ratio 346 Oxygen Delivery Method Room Air Oxygen Flow Rate 2 Narrative Exam Narrative: General:? Patient is a well-developed, well-nourished elderly female in no distress at this time, resting comfortably just being transferred to chair. HEENT:? Normocephalic, R facial bandage in place. extraocular muscles intact Chest: Equal chest rise without nasal flaring, retractions, tachypneic or labored breathing. Musculoskeletal:? Muscle strength and tone are equal, no deformity. Skin:? Warm dry and intact without rashes Neuro:? Alert and orientated x3, moves all extremities Psych:? Patient has a well-kept appearance, appropriate affect, mental status attitude thought context and judgment are appropriate for age. Objective Labs 12/18/22 04:43 12/18/22 04:43 Labs: Laboratory Results - last 24 hr 12/18/22 12/18/22 12/18/22 04:43 04:43 04:43 WBC 10.0 RBC 4.45 Hgb 14.0 Hct 41.3 MCV 92.8 MCH 31.5 MCHC 33.9 RDW 13.4 Plt Count 262 Neut % (Auto) 75.5 H Lymph % (Auto) 14.2 L [place] % (Auto) 9.7 Eos % (Auto) 0.0 L Baso % (Auto) 0.6 Neut # (Auto) 7500 H Lymph # (Auto) 1400 [place] # (Auto) 1000 H Eos # (Auto) 0 Baso # (Auto) 100 Sodium 137 Potassium 4.0 Chloride 97 L Carbon Dioxide 32 BUN 48 H Creatinine 0.84 Estimated GFR > 60 BUN/Creatinine Ratio 57.1 H Glucose 102 Calcium 9.3 Magnesium 1.8 Total Bilirubin 0.6 AST 99 H ALT 71 H Alkaline Phosphatase 43 Total Creatine Kinase 339 H D Total Protein 6.8 Albumin 3.4 L Globulin 3.4 Albumin/Globulin Ratio 1.0 PFSH Medical History Ankle pain Cataracts, bilateral (~2004) Colon polyps Hyperlipidemia Hypertension Hyperthyroidism Hypothyroidism (~1990) Obesity (BMI 35.0-39.9 without comorbidity) Osteoarthritis (~2004) Shingles Surgical History Anesthesia Fracture History of cataract removal with insertion of prosthetic lens Status post colonoscopy (01/14/14) Status post colonoscopy (01/18/11) Family History Mother Age: 111 Hypertension Brother No problems noted. Father No problems noted. Social History marital status: unmarried,single number of children: 0 household members: none and other lives independently: Yes education level: vocational occupational status: other Smoking Status: Never smoker alcohol intake: former substance use type: does not use Assessment & Plan Assessment & Plan narrative: #Sepsis concern initially with Acute respiratory failure with hypoxia, EDA secondary to COVID 19 and bacterial pneumonia. ?- SOFA score of >2 given respiratory failure and EDA ?- continue ceftriaxone and azithromycin, continue dexamethasone 6 mg with transitioned to p.o. daily and remdesevir until off of supplemental oxygen (still requiring at night) ?- avoid further fluids at this time given acute heart failure in the setting of NSTEMI. ?- continue to wean O2 as tolerated with goal O2 90-96% on RA. -at the time of examination today, patient is on room air sitting in the chair #NSTEMI with acute diastolic heart failure. ?- Patient admitted with signs of acute heart failure, volume overload on CXR, elevated troponins at 0.186, managing medically as NSTEMI. 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 Patient denies prior history of heart failure. ?- Discussed with Dr. Jules of [facility] cardiology by previous hospitalist. Recommends medical management with treatment of heart failure, aspirin and statin therapy and outpatient LHC if symptoms are controlled with medical therapy. Given no LHC planned, have transitioned today from heparin infusion to 48 hours of Lovenox for NSTEMI management. ?- start statin therapy, atorvastatin 80 mg -continue ?- start aspirin 81 mg daily after completion of Lovenox #Rhabdomyolysis secondary to ground level fall, found down (over 12hrs), acute, resulting in EDA, acute due to dehydration present on admission ?- CK 3040, will continue to follow. Stop IV fluids given acute heart failure above. 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 She has no dysphagia symptoms at the moment, and I do not suspect it at this time to be contributing to her respiratory symptoms. Though should she complete therapy of the above processes and still have dyspnea, consider transfer or outpatient evaluation for surgical management. * CTA no PE.? Patchy opacities in right base, markedly enlarged and heterogeneous thyroid lobe possible goiter extends into the mediastinum causing a right left midline shift. * Continue methimazole * TSH was requested before admission but not performed-now measured as normal. #Hypertension, essential, chronic, present on admission * hold home HCTZ in setting of sepsis, will also diurese as discussed above, can transition to HCTZ on discharge. #Hyperlipidemia, mixed, chronic, present on admission * change home statin to high intensity given treatment for NSTEMI. #Obesity, moderate, acute on chronic, present on admission * As evidence by BMI 35.9 * dietary consult ordered regarding nutritional education and information for dietary, lifestyle, exercise, and weight changes. * the patient is at much higher risk for medical and surgical complications due to obesity as it relates to chronic illnesses:, and acute illness.? The patient's obesity increases the difficulty and complexity of medical and/or surgical interventions, management and increases the chances of poor outcome such as morbidity and mortality as well as impaired wound healing. Follow clinically and labs. Code status:? Full Surrogate decision maker:? Friend? Zane Hernández DVT/VTE prophylaxis:? on? Therapeutic Lovenox Quality VTE Deep Vein Thrombosis/Pulmonary Embolism Present on Admission: No
[2022-12-18 11:00] VITALS: BP 130/68; PULSE 86; RESP 18; TEMP 36.5; O2SAT 93
[2022-12-18 11:20] LABS: Procalcitonin 0.43 ng/mL (<0.5)
--- NOTE | 2022-12-18 13:57 | PC.NURSE ---
1330 - After pt showered, dressed and rested briefly, was able to walk in the hallway for about 100ft, Sats remained >92%. Pt denied fatigue or shortness of breath.
[2022-12-18 15:46] VITALS: BP 145/83; PULSE 84; RESP 17; TEMP 36.6; O2SAT 94
[2022-12-18] MEDS: ASPIRIN EC 81 MG TABLET PO (17:43)
[2022-12-18 20:00] VITALS: BP 150/76; PULSE 88; RESP 17; TEMP 36.4; O2SAT 92
[2022-12-18] MEDS: SENNOSIDES 8.6 MG TABLET 17.2 MG PO (20:26)
[2022-12-19] VITALS: BP 154/70; PULSE 69; RESP 20; TEMP 36.3; O2SAT 93
[2022-12-19 04:00] VITALS: BP 157/70; PULSE 73; RESP 19; TEMP 36.2; O2SAT 94
[2022-12-19] MEDS: levoFLOXacin 250 MG TABLET 750 MG PO (06:29)
[2022-12-19 06:46] LABS: Add Manual Diff / Slide Review NO; Basophils Absolute Auto 0 /uL (0-100); Basophils Percent Auto 0.2 % (0-2); Eosinophils Absolute Auto 0 /uL (0-450); Hematocrit 41.1 % (36-46); Hemoglobin 14.2 g/dL (12.0-16.0); Lymphocytes Absolute Auto 1800 /uL (1100-4500); Lymphocytes Percent Auto 15.9 % (25-40); Mean Corpuscular HGB Conc 34.5 % (30-36); Mean Corpuscular Hemoglobin 31.8 PG (26-34); Monocytes Absolute Auto 1200 /uL (0-900); Monocytes Percent Auto 10.8 % (3-14); Neutrophils Absolute Auto 8200 /uL (1500-7000); Neutrophils Percent Auto 73.1 % (50-75); Platelet Count 262 X10^3/uL (150-400); Red Blood Cell Count 4.47 X10^6/uL (4.0-5.2); Red Cell Distribution Width 13.6 % (11.6-14.8); White Blood Cell Count 11.3 X10^3/uL (4.5-11.0)
[2022-12-19 07:01] LABS: Alanine Aminotransferase 75 IU/L (<35); Albumin 3.4 g/dL (3.5-5.0); Alkaline Phosphatase 51 U/L (38-126); Aspartate Aminotransferase 75 IU/L (14-36); BUN Creatinine Ratio 49.4 (6-22); Bilirubin Total 0.6 mg/dL (0.2-1.3); Bilirubin Unconjugated 0.4 mg/dL (0.0-1.1); Blood Urea Nitrogen 41 mg/dL (7-17); Calcium 9.2 mg/dL (8.4-10.2); Carbon Dioxide 32 mmol/L (22-32); Chloride 97 mmol/L (98-107); Estimated Glomerular Filt Rate > 60 mL/min (>60); Globulin 3.4 g/dL (1.7-4.1); Glucose 100 mg/dL (80-110); HEMOLYSIS < 15 (0-50); Potassium 3.5 mmol/L (3.4-5.1); Sodium 136 mmol/L (137-145); Total Protein 6.8 g/dL (6.3-8.2)
[2022-12-19 08:00] VITALS: BP 138/69; PULSE 96; RESP 17; O2SAT 93
[2022-12-19] MEDS: dexAMETHasone 1 MG TABLET 6 MG PO (08:32)
[2022-12-19] MEDS: POTASSIUM CHLORIDE 20 MEQ TAB PO (08:32)
[2022-12-19] MEDS: DOCUSATE 100 MG CAPSULE PO (08:32)
[2022-12-19] MEDS: polyethylene glycoL 3350 17 GM POWD.PACK PO (08:32)
[2022-12-19] MEDS: FUROSEMIDE 40 MG TABLET PO (08:32)
[2022-12-19] MEDS: ASPIRIN EC 81 MG TABLET PO (08:32)
[2022-12-19] MEDS: SODIUM CHLORIDE 0.9% FLUSH 10 ML IV (08:33)
[2022-12-19] MEDS: REMDESIVIR 100 MG in SODIUM CHLORIDE 0.9% 250 ML 250 MG IV (09:51)
[2022-12-19 10:23] VITALS: TEMP 36.3
[2022-12-19 12:00] VITALS: BP 138/75; PULSE 98; RESP 20; O2SAT 98
--- NOTE | 2022-12-19 14:19 | PM.DS.1 ---
History of Present Illness History of Present Illness Date Patient Seen: 12/19/22 Chief complaint: Fall last night Narrative: Patient finished her remdesivir and is off O2 supplementation and can complete her dexamethasone 10 day dose as an outpatient orally. Is functionally able to be ready to go home. Discharge Providers Provider Date of admission: 12/15/22 20:10 Discharge Date: 12/19/22 Primary care physician: Adilia Hickey DO Consults: 12/15/22 20:31 Consult to Dietitian, Adult Routine Comment: Reason For Exam: BMI 37 12/17/22 15:59 Consult to Physical Therapy Evaluate & Treat Comment: Physician Instructions: Evaluate and Treat Discharge provider: Kristina Johnson MD Summary Hospital Course Discharge Diagnosis: Acute respiratory failure present on admission Sepsis concern, acute, present on admission COVID-19 present on admission COVID-19 pneumonia, acute, present on admission CHF exacerbation, acute on chronic, present on admission Rhabdomyolysis acute secondary to ground level fall, found down (over 12hrs), acute and present on admission EDA, acute due to dehydration present on admission Myocardial injury, acute, as evidenced by troponin > 99th %, present on admission Ascending thoracic aneurysm, chronic, present on admission Thyroid goiter chronic, hyperthyroidism, chronic, present on admission Hypertension, essential, chronic, present on admission Hyperlipidemia, mixed, chronic, present on admission Obesity, moderate, acute on chronic, present on admission Right facial abrasion, acute present on admission Other comorbidities/past medical history: Ankle pain Cataracts, bilateral (~2004) Colon polyps Osteoarthritis (~2004) Shingles Fracture History of cataract removal with insertion of prosthetic lens Status post colonoscopy (01/14/14) Status post colonoscopy (01/18/11) Hospital Course: Abigail Meadows is a 82 F admitted with acute hypoxic respiratory, NSTEMI, rhabdomyolysis, acute diastolic heart failure, COVID and bacterial pneumonia with concern for acute sepsis present on admission. She also has a large goiter extending into her mediastinum which is chronic. The extent of her previous goiter is not known, she has many outpatient endocrinology noted though the extent of her thyroid disease is not known except for no thyroid nodules on ultrasound noted from 1 week ago visit with her sales support coordinator. Echocardiogram It was discussed with cardiology (Dr. Jules) given new diagnosis of heart failure and NSTEMI management and need for LHC. Dr. Jules from cardiology recommended medical management and outpatient LHC if her chest pain has resolved given patient's concurrent COVID and bacterial pneumonia diagnosis. She was on a heparin infusion fpr 48 hours, and was transitioned to Lovenox for NSTEMI management given no LHC planned. She will then continue with medical management with asa and statin therapy and this will continue following discharge. She had both a RBBB and LAFB on EKG. Patient's primary care physician can refer the patient to Dr. Jules for follow-up in regards to cardiac function and treatment. COVID was treated with remdesivir 200 mg IV initial dose followed by 100 mg IV daily for total of 5 days and patient was placed on dexamethasone 6 mg daily initially IV then transitioned to oral. This can be continued for 6 more days following discharge. Initially the patient required O2 supplementation but at the time of discharge is stable on room air and able to function independently with activities of daily living. COVID pneumonia was treated with levofloxacin. Patient will be discharged home and with home health to follow medical needs of the patient. Status at Discharge Cognitive/behavioral status at discharge: at baseline, oriented Functional status at discharge: uses cane/walker Overall status at discharge: patient is progressing back to baseline Time Spent with Patient Time spent: Greater than 30 minutes Exam Vital Signs (past 8 hours): - 12/19/22 08:00 12/19/22 08:00 12/19/22 10:23 Temperature 97.3 F L Pulse Rate 96 H Respiratory Rate 17 Blood Pressure 138/69 Pulse Oximetry 93 Oxygen Delivery Method Room Air 12/19/22 12:00 Temperature Pulse Rate 98 H Respiratory Rate 20 Blood Pressure 138/75 Pulse Oximetry 98 Oxygen Delivery Method Fraction of Inspired Oxygen 28 SaO2/FiO2 Ratio 346 Oxygen Delivery Method Room Air Oxygen Flow Rate 0 Narrative Exam Narrative: General:? Patient is a well-developed, well-nourished elderly female in no distress at this time, resting comfortably in chair. HEENT:? Normocephalic, R facial abrasion healing well. extraocular muscles intact Chest: Equal chest rise without nasal flaring, retractions, tachypneic or labored breathing. Musculoskeletal:? Muscle strength and tone are equal, no deformity. Skin:? Warm dry and intact without rashes Neuro:? Alert and orientated x3, moves all extremities Psych:? Patient has a well-kept appearance, appropriate affect, mental status attitude thought context and judgment are appropriate for age. Objective Labs 12/19/22 06:10 12/19/22 06:10 Labs: Laboratory Results - last 24 hr 12/19/22 12/19/22 06:10 06:10 WBC 11.3 H RBC 4.47 Hgb 14.2 Hct 41.1 MCV 92.0 MCH 31.8 MCHC 34.5 RDW 13.6 Plt Count 262 Neut % (Auto) 73.1 Lymph % (Auto) 15.9 L [place] % (Auto) 10.8 Eos % (Auto) 0.0 L Baso % (Auto) 0.2 Neut # (Auto) 8200 H Lymph # (Auto) 1800 [place] # (Auto) 1200 H Eos # (Auto) 0 Baso # (Auto) 0 Sodium 136 L Potassium 3.5 Chloride 97 L Carbon Dioxide 32 BUN 41 H Creatinine 0.83 Estimated GFR > 60 BUN/Creatinine Ratio 49.4 H Glucose 100 Calcium 9.2 Total Bilirubin 0.6 Conjugated Bilirubin 0.0 Unconjugated Bilirubin 0.4 AST 75 H ALT 75 H Alkaline Phosphatase 51 Total Protein 6.8 Albumin 3.4 L Globulin 3.4 Albumin/Globulin Ratio 1.0 PFSH Medical History Ankle pain Cataracts, bilateral (~2004) Colon polyps Hyperlipidemia Hypertension Hyperthyroidism Hypothyroidism (~1990) Obesity (BMI 35.0-39.9 without comorbidity) Osteoarthritis (~2004) Shingles Surgical History Anesthesia Fracture History of cataract removal with insertion of prosthetic lens Status post colonoscopy (01/14/14) Status post colonoscopy (01/18/11) Family History Mother Age: 111 Hypertension Brother No problems noted. Father No problems noted. Social History marital status: unmarried,single number of children: 0 household members: none and other lives independently: Yes education level: vocational occupational status: other Smoking Status: Never smoker alcohol intake: former substance use type: does not use Discharge Plan Discharge Plan Patient Disposition: Home Provider Discharge Comment: Home health to follow for medical reasons at home Discharge orders & Medications Prescriptions: New atorvastatin 20 mg Tablet 80 mg PO BEDTIME Qty: 120 0RF aspirin 81 mg Tablet,Delayed Release (Dr/Ec) 81 mg PO DAILY Qty: 30 0RF calcium carbonate 200 mg calcium (500 mg) Tablet,Chewable 1,000 mg PO Q4HR PRN (Reason: Dyspepsia) Qty: 100 0RF furosemide 40 mg Tablet 40 mg PO DAILY Qty: 30 0RF sennosides [senna] 8.6 mg Tablet 17.2 mg PO BEDTIME Qty: 30 0RF docusate sodium 100 mg Capsule 100 mg PO BID Qty: 60 0RF dexamethasone 1 mg Tablet 6 mg PO DAILY Qty: 36 0RF Rx Instructions: Take 6 tablets of 1 mg tablets for total of 6mg daily for 6 days starting December 20 Continued methimazole 5 mg tablet 5 mg PO DAILY pravastatin 20 mg tablet 20 mg PO HS Qty: 90 3RF VITAMIN D (Vitamin D3) 1,000 unit PO QDAY Qty: 0 [GLUCOSAMINE] 1 cap PO DAILY Qty: 0 polyethylene glycol 3350 [Miralax] 17 gram/dose powder See Rx Instructions PO QDAY Qty: 527 11RF Dose Instruction: 1 scoop dissolved in 4oz liquid daily PO QDAY; Rx Instructions: 1 scoop dissolved in 4oz liquid daily PO QDAY; Centrum Silver 0.4-300-250 mg-mcg-mcg Tablet 1 tab PO DAILY Discontinued hydrochlorothiazide 25 mg tablet 25 mg PO DAILY Qty: 90 3RF Follow up/Referrals: Adilia Hickey DO [Primary Care Provider] - Visit Report/Discharge Packet Stand Alone Forms: Patient Portal/API, Stroke Signs & Symptoms Discharge Data Primary Care Provider: Adilia Hickey Quality VTE Deep Vein Thrombosis/Pulmonary Embolism Present on Admission: No
--- NOTE | 2022-12-19 14:21 | CM.DPC ---
DCP Continued: MERCHANT MILLER reviewed EMR. Per nursing staff in rounds, patient is up and moving around. Per provider in rounds patient will likely d/c home today. From nursing staff patient is on room air and is ambulating close to baseline. MERCHANT MILLER received call from concerned family friend, Annita. Annita is concerned about patient's d/c plan home due to patient living alone. Annita is worried about the manager terminal plan of patient. MERCHANT MILLER educated friend on HH services and provided over the phone resource options for manager terminal caregiving plan. MERCHANT MILLER called room phone due to patient's active COVID diagnosis. MERCHANT MILLER introduced self and role. Patient was accompanied in room by family friend Zane. Zane is going to be her transportation home and stay with her for the next day or so. Patient reported being interested in HH services but not having a preference for specific agency. Patient is eager to go home to her cat and is just waiting to hear from doctor. Patient aware she must be homebound while receiving services. MERCHANT MILLER spoke with provider re: HH services. Provider in agreement that HH is a safe d/c plan. MERCHANT MILLER placed verbal read back order for HH services. CM Outside Maintenance Worker Génesis faxed [facility] the initial information for referral. MERCHANT MILLER gave Génesis the face to face sheet. Plan: patient will d/c home with family friend later today. Patient will begin services with [facility] for nursing/a medical cash poster for [facility] career services coordinator planning. CM team will continue to follow as needed. AMADO Kruse
== END 2022-12-19 16:00 | disposition home health service (06) | DRG 871 ==
LOC: ED 18:57 → ICU 12-16 01:18 → AC 12-16 12:29 → ICU 12-16 12:29
PROVIDERS: Emergency Medicine; Internal Medicine; Neuromusculoskeletal Medicine, Sports Medicine; Admitting Provider Nurse Practitioner Family; Emergency Provider Emergency Medicine; PCP Family Medicine; Visit Provider Nurse Practitioner Family
DX: A41.9 Sepsis, unspecified organism (principal); I50.33 Acute on chronic diastolic (congestive) heart failure; J12.82 Pneumonia due to coronavirus disease 2019; U07.1 COVID-19; J96.01 Acute respiratory failure with hypoxia; N17.9 Acute kidney failure, unspecified; M62.82 Rhabdomyolysis; I5A Non-ischemic myocardial injury (non-traumatic); E05.00 Thyrotoxicosis with diffuse goiter without thyrotoxic crisis or storm; E78.5 Hyperlipidemia, unspecified; E66.9 Obesity, unspecified; I11.0 Hypertensive heart disease with heart failure; R65.20 Severe sepsis without septic shock; E86.0 Dehydration; W18.30XA Fall on same level, unspecified, initial encounter; Z87.891 Personal history of nicotine dependence; Z68.35 Body mass index [BMI] 35.0-35.9, adult
CPT/HCPCS: 36415; 71045; 71275; 73502; 73560; 80048; 80053; 80061; 80076; 81003; 82550; 82805; 83605; 83690; 83735; 83880; 84132; 84145; 84443; 84484; 85025; 85379; 85610; 85730; 86140; 87040; 87086; 87633; 87797; 93005; 93306; 94762; 96361; 96365; 96375; 99285; 99291; J1100; J1644; J1650; J1940; J1956; J2405; Q9967

== ENCOUNTER → 2022-12-29 12:14 | Outpatient (CLI) | payer MEDICARE, OTHER, SELFPAY ==
[2022-12-21 16:25] VITALS: BMI 35.9
[2022-12-29 14:22] LABS: Alanine Aminotransferase 20 IU/L (<35); Albumin 3.7 g/dL (3.5-5.0); Alkaline Phosphatase 73 U/L (38-126); Aspartate Aminotransferase 26 IU/L (14-36); BUN Creatinine Ratio 22.1 (6-22); Bilirubin Total 0.7 mg/dL (0.2-1.3); Blood Urea Nitrogen 19 mg/dL (7-17); Calcium 9.2 mg/dL (8.4-10.2); Carbon Dioxide 34 mmol/L (22-32); Chloride 94 mmol/L (98-107); Cholesterol 165 mg/dL (140-199); Estimated Glomerular Filt Rate > 60 mL/min (>60); Globulin 3.7 g/dL (1.7-4.1); Glucose 115 mg/dL (80-110); HDL Cholesterol 35 mg/dL (40-60); HEMOLYSIS < 15 (0-50); LDL Cholesterol Calculated 104 mg/dL (<100); Potassium 3.4 mmol/L (3.4-5.1); Sodium 135 mmol/L (137-145); Total Protein 7.4 g/dL (6.3-8.2); Triglycerides 128 mg/dL (35-150)
== END ==
PROVIDERS: PCP Internal Medicine; Referring Provider Internal Medicine; Visit Provider Internal Medicine
DX: E78.2 Mixed hyperlipidemia (principal); I10 Essential (primary) hypertension
CPT/HCPCS: 36415; 80053; 80061

== ENCOUNTER → 2023-10-25 11:42 | Outpatient (CLI) | payer MEDICARE, OTHER, SELFPAY ==
[2022-12-21 16:25] VITALS: BMI 35.9
[2023-10-25 13:44] LABS: Aspartate Aminotransferase 22 IU/L (14-36); BUN Creatinine Ratio 31.6 (6-22); Blood Urea Nitrogen 24 mg/dL (7-17); Calcium 9.6 mg/dL (8.4-10.2); Carbon Dioxide 30 mmol/L (22-32); Chloride 105 mmol/L (98-107); Cholesterol 192 mg/dL (140-199); Estimated Glomerular Filt Rate > 60 mL/min (>60); Glucose 97 mg/dL (80-110); HDL Cholesterol 44 mg/dL (40-60); HEMOLYSIS < 15 (0-50); LDL Cholesterol Calculated 115 mg/dL (<100); Potassium 4.3 mmol/L (3.4-5.1); Sodium 140 mmol/L (137-145); Triglycerides 165 mg/dL (35-150)
[2023-10-25 14:05] LABS: TSH w/ Reflex to FT4 2.48 uIU/mL (0.47-4.68)
== END ==
PROVIDERS: PCP Internal Medicine; Referring Provider Internal Medicine; Visit Provider Internal Medicine
DX: E05.90 Thyrotoxicosis, unspecified without thyrotoxic crisis or storm (principal); I10 Essential (primary) hypertension; E78.2 Mixed hyperlipidemia
CPT/HCPCS: 36415; 80048; 80061; 84443; 84450